=== PATIENT | male | born 1950 | race Two or more races ===

== ENCOUNTER 2017-01-27 12:32 | Inpatient (IN) | payer OTHER ==
[2017-01-27 14:28] VITALS: BMI 20.9
--- NOTE | 2017-01-27 14:59 | HP ---
CIWA Score - CIWA Score Nausea/Vomitin Muscle Tremors: 4-Moderate,w/Arms Extend Anxiety: 3 Agitation: 3 Paroxysmal Sweats: 2 Orientation: 0-Oriented Tacttile Disturbances: 1-Very Mild Itch/Numbness Auditory Disturbances: 0-None Visual Disturbances: 0-None Headache: 2-Mild CIWA-Ar Total Score: 17 Admission ROS BHS - HPI Chief Complaint: Withdrawal sx Allergies/Adverse Reactions: Allergies Allergy/AdvReac Type Severity Reaction Status Date / Time kiwi Allergy Intermediate Rash Verified 02/19/16 12:40 No Known Drug Allergies Allergy Verified 02/19/16 12:40 History of Present Illness: 66 years old man with a long hx of alcoholism is admitted for detox. Patient has been in previous detox, reports 1 year sobriety. Exam Limitations: No Limitations - Ebola screening Have you traveled outside of the country in the last 21 days: No Have you had contact with anyone from an Ebola affected area: No Have you been sick,other than usual withdrawal symptoms: No Do you have a fever: No - Review of Systems Constitutional: Diaphoresis EENT: reports: No Symptoms Reported Respiratory: reports: Cough (dry) Cardiac: reports: No Symptoms Reported GI: reports: Nausea, Abdominal cramping : reports: Frequency Musculoskeletal: reports: Joint Pain Integumentary: reports: Sweating Neuro: reports: Headache, Tingling, Tremors, Other (frequent blackouts) Endocrine: reports: No Symptoms Reported Hematology: reports: No Symptoms Reported Psychiatric: reports: No Sypmtoms Reported Other Systems: Reviewed and Negative Patient History - Patient Medical History Hx Anemia: No Hx Asthma: No Hx Chronic Obstructive Pulmonary Disease (COPD): No Hx Cancer: No Hx Cardiac Disorders: No Hx Congestive Heart Failure: No Hx Hypertension: Yes (non compliant with meds.) Hx Hypercholesterolemia: No Hx Pacemaker: No HX Cerebrovascular Accident: No Hx Seizures: No Hx Dementia: No Hx Diabetes: No Hx Gastrointestinal Disorders: Yes (DYSPEPSIA ) Hx Liver Disease: No Hx Genitourinary Disorders: No Hx Sexually Transmitted Disorders: Yes (GC) Hx Renal Disease (ESRD): No Hx Thyroid Disease: No Hx Human Immunodeficiency Virus (HIV): No Hx Hepatitis C: No Hx Depression: Yes Hx Suicide Attempt: No Hx Bipolar Disorder: Yes Hx Schizophrenia: No - Patient Surgical History Past Surgical History: Yes Hx Neurologic Surgery: No Hx Cataract Extraction: No Hx Cardiac Surgery: No Hx Lung Surgery: No Hx Breast Surgery: No Hx Breast Biopsy: No Hx Abdominal Surgery: No Hx Appendectomy: Yes Hx Cholecystectomy: No Hx Genitourinary Surgery: No Hx Section: No Hx Orthopedic Surgery: Yes (right forearm in 1981 (fall)) Anesthesia Reaction: No - PPD History Previous Implant?: Yes Documented Results: Negative w/proof Implanted On Prior [facility] Admission?: Yes Date: 02/21/16 Results: 0 MM PPD to be Administered?: Yes - Smoking Cessation Smoking history: Current every day smoker Have you smoked in the past 12 months: Yes Aproximately how many cigarettes per day: 20 Hx Chewing Tobacco Use: No Initiated information on smoking cessation: Yes 'Breaking Loose' booklet given: 01/27/17 - Substance & Tx. History Hx Alcohol Use: Yes Hx Substance Use: No Substance Use Type: Alcohol Hx Substance Use Treatment: Yes ([facility] DETOX 01/2016) - Substances Abused Alcohol Route: Oral Frequency: Daily Amount used: VODKA 3 PINTS, BEER > 1(6 PACK) Age of first use: 11 Date of Last Use: 01/26/17 Family Disease History - Family Disease History Family Disease History: CA: Father (THORAT CA, ALCOHOL), Mother (LEUKEMIA), Brother (LEUKEMIA), Other: Father Admission Physical Exam BHS - Vital Signs Vital Signs: Vital Signs - 24 hr 01/27/17 14:26 Temperature 97.4 F L Pulse Rate 99 H Respiratory 20 Rate Blood Pressure 161/95 - Physical General Appearance: Yes: Tremorous, Sweating, Anxious HEENTM: Yes: Within Normal Limits Respiratory: Yes: Chest Non-Tender, Lungs Clear, Normal Breath Sounds, No Respiratory Distress Neck: Yes: Supple Breast: Yes: Breast Exam Deferred Cardiology: Yes: Regular Rhythm, Regular Rate, S1, S2 Abdominal: Yes: Normal Bowel Sounds, Non Tender, Soft Genitourinary: Yes: Within Normal Limits Back: Yes: Within Normal Limits Musculoskeletal: Yes: Within Normal Limits Extremities: Yes: Tremors, Other (ARTHRITIC CHANGES TO BOTH HANDS) Neurological: Yes: Fully Oriented, Alert Integumentary: Yes: Diaphoresis Lymphatic: Yes: Within Normal Limits - Diagnostic (1) Alcohol dependence with uncomplicated withdrawal Current Visit: Yes Status: Chronic (2) HTN (hypertension) Current Visit: Yes Status: Chronic Qualifiers: Hypertension type: essential hypertension Qualified Code(s): I10 - Essential (primary) hypertension (3) Nicotine dependence Current Visit: Yes Status: Chronic Qualifiers: Nicotine product type: cigarettes Substance use status: uncomplicated Qualified Code(s): F17.210 - Nicotine dependence, cigarettes, uncomplicated Cleared for Admission BHS - Detox or Rehab [facility] Level of Care: Medically Managed Detox Regimen/Protocol: Librium BHS Breath Alcohol Content Breath Alcohol Content: 0 Urine Drug Screen - Results Drug Screen Negative: No Urine Drug Screen Results: BZO-Benzodiazepines
[2017-01-27] MEDS ORDERED: NICOTINE POLACRILEX 2 MG GUM BC PRN (15:27)
[2017-01-27] MEDS ORDERED: hydrOXYzine PAMOATE 50 MG CAPSULE (FP) PO PRN (15:27)
[2017-01-27] MEDS ORDERED: MAG HYDROX/AL HYDROX/SIMETH 30 ML UNIT-DOSE CUP PO PRN (15:27)
[2017-01-27] MEDS ORDERED: IBUPROFEN 400 MG TABLET (FP) PO PRN (15:27)
[2017-01-27] MEDS ORDERED: guaiFENesin/D-METHORPHAN HB 10 ML UNIT-DOSE CUPS PO PRN (15:27)
[2017-01-27] MEDS ORDERED: MENTHOL/PHENOL 1 EACH UD MM PRN (15:27)
[2017-01-27] MEDS ORDERED: P-EPHED 60MG/TRIPROLIDI 2.5MG TABLET PO PRN (15:27)
[2017-01-27] MEDS ORDERED: LOPERAMIDE HCL 2 MG CAPSULE PO PRN (15:27)
[2017-01-27] MEDS ORDERED: chlordiazePOXIDE HCL 25 MG CAPSULE PO PRN (15:27)
[2017-01-27] MEDS ORDERED: MAGNESIUM CITRATE 300 ML BOTTLE PO PRN (15:27)
[2017-01-27] MEDS ORDERED: diphenhydrAMINE HCL 50 MG CAPSULE PO PRN (15:27)
[2017-01-27] MEDS ORDERED: MAGNESIUM HYDROX 2400MG/30ML ORAL SUSPENSION 30 ML CUP PO PRN (15:27)
[2017-01-27] MEDS ORDERED: ACETAMINOPHEN 325 MG TABLET (FP) PO PRN (15:27)
[2017-01-27] MEDS ORDERED: chlordiazePOXIDE HCL 25 MG CAPSULE PO ONE (17:00)
[2017-01-27] MEDS: VERAPAMIL HCL 240 MG E.R. TABLET (FP) PO SCH (18:26)
[2017-01-27] MEDS: chlordiazePOXIDE HCL 25 MG CAPSULE PO SCH ×2 (18:27→22:23)
[2017-01-27] MEDS: NICOTINE 21 MG/24 HOURS TOPICAL PATCH TD SCH (18:29)
[2017-01-27] MEDS: THIAMINE HCL 100 MG TABLET (FP) PO SCH (22:22)
[2017-01-28 00:20] LABS: URINE APPEARANCE CLEAR; URINE BILIRUBIN NEGATIVE (NEGATIVE); URINE BLOOD NEGATIVE (NEGATIVE); URINE COLOR YELLOW; URINE GLUCOSE (UA) 3+ (NEGATIVE); URINE KETONE NEGATIVE (NEGATIVE); URINE LEUK ESTERASE NEGATIVE (NEGATIVE); URINE NITRITE NEGATIVE (NEGATIVE); URINE PROTEIN NEGATIVE (NEGATIVE); URINE UROBILINOGEN NEGATIVE mg/dL (0.2-1.0)
[2017-01-28] MEDS: chlordiazePOXIDE HCL 25 MG CAPSULE PO SCH ×4 (05:14→22:14)
[2017-01-28 09:42] LABS: MCH 33.9 pg (25.7-33.7); MCHC 34.5 g/dl (32.0-35.9); MEAN CELL VOLUME 98.5 fl (80-96); MEAN PLT VOLUME 8.3 fl (7.5-11.1); PLATELET COUNT 156 K/MM3 (134-434); RDW 14.3 % (11.9-15.9); WHITE BLOOD COUNT 8.7 K/mm3 (4.0-10.0)
--- NOTE | 2017-01-28 09:55 | EKG ---
Test Reason : Blood Pressure : / mmHG Vent. Rate : 095 BPM Atrial Rate : 095 BPM P-R Int : 140 ms QRS Dur : 098 ms QT Int : 386 ms P-R-T Axes : 069 074 071 degrees QTc Int : 485 ms SINUS RHYTHM WITH PREMATURE ATRIAL COMPLEXES VOLTAGE CRITERIA FOR LEFT VENTRICULAR HYPERTROPHY NONSPECIFIC ST ABNORMALITY PROLONGED QT ABNORMAL ECG NO PREVIOUS ECGS AVAILABLE Confirmed by PIA LOWE MD ([id number]) on 01/28/2017 9:55:17 AM Referred By: Moise Cooper Confirmed By:PIA LOWE MD
[2017-01-28 09:59] LABS: ALK PHOS 92 U/L (45-117); ANION GAP 8 (8-16); BILIRUBIN,TOTAL 1.1 mg/dL (0.2-1.0); CO2 30 mmol/L (21-32); CREATININE 0.9 mg/dL (0.7-1.3); GLUCOSE,RANDOM 118 mg/dL (74-106); SGOT/AST 24 U/L (15-37); SGPT/ALT 20 U/L (12-78); TOT PROT 6.7 g/dl (6.4-8.2)
[2017-01-28] MEDS: PRENATAL VITAMINS W/ FOLIC ACID TABLET (FP) PO SCH (10:27)
[2017-01-28] MEDS: NICOTINE 21 MG/24 HOURS TOPICAL PATCH TD SCH (10:27)
[2017-01-28] MEDS: VERAPAMIL HCL 240 MG E.R. TABLET (FP) PO SCH (10:27)
--- NOTE | 2017-01-28 11:46 | PN ---
[facility] CIWA - CIWA Score Nausea/Vomitin-No Nausea/No Vomiting Muscle Tremors: 4-Moderate,w/Arms Extend Anxiety: 4-Mod. Anxious/Guarded Agitation: 4-Moderately Restless Paroxysmal Sweats: 1-Minimal Palms Moist Orientation: 0-Oriented Tacttile Disturbances: 3-Moderate Itch/Numb/Burn Auditory Disturbances: 0-None Visual Disturbances: 0-None Headache: 0-None Present CIWA-Ar Total Score: 16 S Progress Note (SOAP) Subjective: ANXIETY,TREMORS,SWEATS,INTERMITTENT SLEEP. Objective: 01/28/17 11:46 Vital Signs Temperature 97.1 F L 01/28/17 09:49 Pulse Rate 86 01/28/17 09:49 Respiratory Rate 18 01/28/17 09:49 Blood Pressure 122/66 01/28/17 09:49 O2 Sat by Pulse Oximetry (%) Laboratory Last Values WBC 8.7 K/mm3 (4.0-10.0) D 01/28/17 07:00 RBC 3.34 M/mm3 (4.00-5.60) L 01/28/17 07:00 Hgb 11.3 GM/dL (11.7-16.9) L 01/28/17 07:00 Hct 32.9 % (35.4-49) L 01/28/17 07:00 MCV 98.5 fl (80-96) H 01/28/17 07:00 MCH 33.9 pg (25.7-33.7) H 01/28/17 07:00 MCHC 34.5 g/dl (32.0-35.9) 01/28/17 07:00 RDW 14.3 % (11.9-15.9) 01/28/17 07:00 Plt Count 156 K/MM3 (134-434) D 01/28/17 07:00 MPV 8.3 fl (7.5-11.1) 01/28/17 07:00 Sodium 135 mmol/L (136-145) L 01/28/17 07:00 Potassium 3.4 mmol/L (3.5-5.1) L 01/28/17 07:00 Chloride 97 mmol/L (98-107) L 01/28/17 07:00 Carbon Dioxide 30 mmol/L (21-32) 01/28/17 07:00 Anion Gap 8 (8-16) 01/28/17 07:00 BUN 11 mg/dL (7-18) 01/28/17 07:00 Creatinine 0.9 mg/dL (0.7-1.3) 01/28/17 07:00 Creat Clearance w eGFR > 60 (>60) 01/28/17 07:00 Random Glucose 118 mg/dL (74-106) H 01/28/17 07:00 Calcium 9.0 mg/dL (8.5-10.1) 01/28/17 07:00 Total Bilirubin 1.1 mg/dL (0.2-1.0) H D 01/28/17 07:00 AST 24 U/L (15-37) 01/28/17 07:00 ALT 20 U/L (12-78) 01/28/17 07:00 Alkaline Phosphatase 92 U/L (45-117) 01/28/17 07:00 Total Protein 6.7 g/dl (6.4-8.2) D 01/28/17 07:00 Albumin 3.0 g/dl (3.4-5.0) L D 01/28/17 07:00 Urine Color Yellow 01/27/17 22:24 Urine Appearance Clear 01/27/17 22:24 Urine pH 5.0 (5.0-8.0) 01/27/17 22:24 Ur Specific [place] 1.015 (1.005-1.025) 01/27/17 22:24 Urine Protein Negative (NEGATIVE) 01/27/17 22:24 Urine Glucose (UA) 3+ (NEGATIVE) H 01/27/17 22:24 Urine Ketones Negative (NEGATIVE) 01/27/17 22:24 Urine Blood Negative (NEGATIVE) 01/27/17 22:24 Urine Nitrite Negative (NEGATIVE) 01/27/17 22:24 Urine Bilirubin Negative (NEGATIVE) 01/27/17 22:24 Urine Urobilinogen Negative mg/dL (0.2-1.0) 01/27/17 22:24 RPR Titer Nonreactive (NONREACTIVE) 01/28/17 07:00 LABS NOTED. Assessment: 01/28/17 11:46 WITHDRAWAL SX R/O HYPERGLYCEMIA Plan: CONTINUE DETOX FBS X 2 DAYS
[2017-01-28] MEDS ORDERED: POTASSIUM CHLORIDE TABS 20 MEQ TABLET.ER (FP) PO ONE (12:30)
--- NOTE | 2017-01-28 12:47 | CONSULT ---
[facility] Psychiatric Consult - Data Date of interview: 01/28/17 Admission source: [facility] Identifying data: Readmission to [facility] for this 66 y/o male seeking detox treatment on for alcohol dependence.Patient is single ( common-law),a father of one,domiciled,unemployed and supported on his [employer] Veterans benefits. Substance Abuse History: Confirmed by patient. Smoking Cessation. Smoking history: Current every day smoker. Have you smoked in the past 12 months: Yes. Aproximately how many cigarettes per day: 20. Hx Chewing Tobacco Use: No. Initiated information on smoking cessation: Yes. 'Breaking Loose' booklet given : 01/27/17. - Substance & Tx. History. Hx Alcohol Use: Yes. Hx Substance Use : No. Substance Use Type: Alcohol. Hx Substance Use Treatment: Yes ([facility] 01/2016). - Substances Abused. Alcohol. Route: Oral. Frequency: Daily. Amount used: VODKA 3 PINTS, BEER > 1(6 PACK). Age of first use: 11. Date of Last Use: 01/26/17 Medical History: Remarkable for hypertension,dyspepsia and a history of treatment for gonorrhea + appendectomy + orthosurgery for fracture of right forearm (1981). Psychiatric History: No reported history of psychiatric hospitalizations.Patient has been diagnosed with Bipolar Disorder and he is currently followed at the [facility] OPD clinic in the [place].Managed with seroquel 200 mg/hs.Mr Martinez indicates that he is adherent to his medications.No history of suicide attempts. Physical/Sexual Abuse/Trauma History: Patient denies history of abuse. Additional Comment: Urine Drug Screen Results: BZO-Benzodiazepines.Noted. Mental Status Exam - Mental Status Exam Alert and Oriented to: Time, Place, Person Cognitive Function: Good Patient Appearance: Well Groomed (small stature) Mood: Hopeful, Euthymic Affect: Appropriate, Normal Range Patient Behavior: Appropriate, Cooperative (friendly) Speech Pattern: Clear, Appropriate (french fluent) Voice Loudness: Normal Thought Process: Intact, Goal Oriented Thought Disorder: Not Present Hallucinations: Denies Suicidal Ideation: Denies Homicidal Ideation: Denies Insight/Judgement: Poor Sleep: Well, Poorly (medication : seroquel) Appetite: Good Muscle strength/Tone: Normal Gait/Station: Normal Psychiatric Findings - Problem List ([place] 1, 2,3) (1) Bipolar disorder Current Visit: Yes Status: Chronic Comment[facility]. (2) Alcohol dependence with uncomplicated withdrawal Current Visit: Yes Status: Acute (3) Nicotine dependence Current Visit: Yes Status: Acute Qualifiers: Nicotine product type: cigarettes Substance use status: uncomplicated Qualified Code(s): F17.210 - Nicotine dependence, cigarettes, uncomplicated (4) Drug-induced mood disorder Current Visit: Yes Status: Acute (5) HTN (hypertension) Current Visit: Yes Status: Chronic Qualifiers: Hypertension type: essential hypertension Qualified Code(s): I10 - Essential (primary) hypertension - Initial Treatment Plan Initial Treatment Plan: Psychoeducation.Detoxification.Seroquel 100 mg po hs ( purposedly reduced).Observe response in next 24-48 hours and if no oversedation, will raise back to 200 mg/hs.Side effects/benefits discussed with patient.He is in agreement with this careplan.Observation.
[2017-01-28] MEDS: QUEtiapine FUMARATE 100 MG TABLET (FP) PO SCH (22:14)
[2017-01-28] MEDS: THIAMINE HCL 100 MG TABLET (FP) PO SCH (22:14)
[2017-01-29] MEDS: chlordiazePOXIDE HCL 25 MG CAPSULE PO SCH ×2 (06:06→10:16)
[2017-01-29] MEDS: VERAPAMIL HCL 240 MG E.R. TABLET (FP) PO SCH (10:16)
[2017-01-29] MEDS: POTASSIUM CHLORIDE TABS 20 MEQ TABLET.ER (FP) PO SCH (10:16)
[2017-01-29] MEDS: NICOTINE 21 MG/24 HOURS TOPICAL PATCH TD SCH (10:16)
[2017-01-29] MEDS: PRENATAL VITAMINS W/ FOLIC ACID TABLET (FP) PO SCH (10:16)
--- NOTE | 2017-01-29 15:45 | PN ---
S CIWA - CIWA Score Nausea/Vomitin Muscle Tremors: 3 Anxiety: 4-Mod. Anxious/Guarded Agitation: 2 Paroxysmal Sweats: No Perspiration Orientation: 2-Disoriented Date<2 days Tacttile Disturbances: 2-Mild Itch/Numbness/Burn Auditory Disturbances: 0-None Visual Disturbances: 0-None Headache: 3-Moderate CIWA-Ar Total Score: 18 BHS Progress Note (SOAP) Subjective: Tremors, H/A, Stomach Cramping, Diarrhea. Objective: PT. A & O X 2 (DISORIENTED ABOUT DAY / DATE). PT. OBSERVED AMBULATING ON UNIT. NO ACUTE DISTRESS. 01/29/17 15:42 Vital Signs Temperature 98.6 F 01/29/17 11:09 Pulse Rate 80 01/29/17 11:09 Respiratory Rate 20 01/29/17 11:09 Blood Pressure 122/57 01/29/17 11:09 O2 Sat by Pulse Oximetry (%) Laboratory Tests 01/27/17 01/28/17 01/28/17 22:24 07:00 07:00 WBC 8.7 D RBC 3.34 L Hgb 11.3 L Hct 32.9 L MCV 98.5 H MCH 33.9 H MCHC 34.5 RDW 14.3 Plt Count 156 D MPV 8.3 Sodium 135 L Potassium 3.4 L Chloride 97 L Carbon Dioxide 30 Anion Gap 8 BUN 11 Creatinine 0.9 Creat Clearance w eGFR > 60 POC Glucometer Random Glucose 118 H Calcium 9.0 Total Bilirubin 1.1 H D AST 24 ALT 20 Alkaline Phosphatase 92 Total Protein 6.7 D Albumin 3.0 L D Urine Color Yellow Urine Appearance Clear Urine pH 5.0 Ur Specific [place] 1.015 Urine Protein Negative Urine Glucose (UA) 3+ H Urine Ketones Negative Urine Blood Negative Urine Nitrite Negative Urine Bilirubin Negative Urine Urobilinogen Negative RPR Titer 01/28/17 01/29/17 07:00 06:08 WBC RBC Hgb Hct MCV MCH MCHC RDW Plt Count MPV Sodium Potassium Chloride Carbon Dioxide Anion Gap BUN Creatinine Creat Clearance w eGFR POC Glucometer 94 Random Glucose Calcium Total Bilirubin AST ALT Alkaline Phosphatase Total Protein Albumin Urine Color Urine Appearance Urine pH Ur Specific [place] Urine Protein Urine Glucose (UA) Urine Ketones Urine Blood Urine Nitrite Urine Bilirubin Urine Urobilinogen RPR Titer Nonreactive LABS NOTED. Assessment: 01/29/17 15:43 WITHDRAWAL SYMPTOMS. HYPOKALEMIA. Plan: CONTINUE DETOX. FEOSOL, 325 MG PO BIDWM. REPEAT UA FOR ELEVATED ADMISSION UA URINE GLUCOSE LEVEL. INCREASE DAILY PO FLUID INTAKE.
[2017-01-29] MEDS: FERROUS SO4 325 MG TABLET (FP) PO SCH (17:32)
[2017-01-29] MEDS: chlordiazePOXIDE 5 MG CAPSULE PO SCH ×2 (17:33→22:36)
[2017-01-29] MEDS: THIAMINE HCL 100 MG TABLET (FP) PO SCH (22:35)
[2017-01-29] MEDS: QUEtiapine FUMARATE 100 MG TABLET (FP) PO SCH (22:35)
[2017-01-30] MEDS: chlordiazePOXIDE 5 MG CAPSULE PO SCH ×2 (05:49→10:47)
[2017-01-30] MEDS: FERROUS SO4 325 MG TABLET (FP) PO SCH ×2 (08:22→17:14)
[2017-01-30] MEDS: PRENATAL VITAMINS W/ FOLIC ACID TABLET (FP) PO SCH (10:46)
[2017-01-30] MEDS: VERAPAMIL HCL 240 MG E.R. TABLET (FP) PO SCH (10:46)
[2017-01-30] MEDS: NICOTINE 21 MG/24 HOURS TOPICAL PATCH TD SCH (10:47)
[2017-01-30] MEDS: POTASSIUM CHLORIDE TABS 20 MEQ TABLET.ER (FP) PO SCH (10:47)
[2017-01-30 13:23] LABS: URINE APPEARANCE CLEAR; URINE BILIRUBIN NEGATIVE (NEGATIVE); URINE BLOOD NEGATIVE (NEGATIVE); URINE COLOR LTYELLOW; URINE GLUCOSE (UA) NEGATIVE (NEGATIVE); URINE KETONE NEGATIVE (NEGATIVE); URINE LEUK ESTERASE NEGATIVE (NEGATIVE); URINE NITRITE NEGATIVE (NEGATIVE); URINE PROTEIN NEGATIVE (NEGATIVE); URINE UROBILINOGEN NEGATIVE mg/dL (0.2-1.0)
--- NOTE | 2017-01-30 15:54 | PN ---
BHS Progress Note (SOAP) Subjective: Tremor, chills, sweating, anxious, nausea Objective: 01/30/17 15:50 Last Vital Signs Temp Pulse Resp BP Pulse Ox 98.2 F 88 18 123/69 01/30/17 14:49 01/30/17 14:49 01/30/17 14:49 01/30/17 14:49 Laboratory Tests 01/27/17 01/28/17 01/28/17 22:24 07:00 07:00 WBC 8.7 D RBC 3.34 L Hgb 11.3 L Hct 32.9 L MCV 98.5 H MCH 33.9 H MCHC 34.5 RDW 14.3 Plt Count 156 D MPV 8.3 Sodium 135 L Potassium 3.4 L Chloride 97 L Carbon Dioxide 30 Anion Gap 8 BUN 11 Creatinine 0.9 Creat Clearance w eGFR > 60 POC Glucometer Random Glucose 118 H Calcium 9.0 Total Bilirubin 1.1 H D AST 24 ALT 20 Alkaline Phosphatase 92 Total Protein 6.7 D Albumin 3.0 L D Urine Color Yellow Urine Appearance Clear Urine pH 5.0 Ur Specific [place] 1.015 Urine Protein Negative Urine Glucose (UA) 3+ H Urine Ketones Negative Urine Blood Negative Urine Nitrite Negative Urine Bilirubin Negative Urine Urobilinogen Negative RPR Titer 01/28/17 01/29/17 01/30/17 07:00 06:08 05:52 WBC RBC Hgb Hct MCV MCH MCHC RDW Plt Count MPV Sodium Potassium Chloride Carbon Dioxide Anion Gap BUN Creatinine Creat Clearance w eGFR POC Glucometer 94 111 Random Glucose Calcium Total Bilirubin AST ALT Alkaline Phosphatase Total Protein Albumin Urine Color Urine Appearance Urine pH Ur Specific [place] Urine Protein Urine Glucose (UA) Urine Ketones Urine Blood Urine Nitrite Urine Bilirubin Urine Urobilinogen RPR Titer Nonreactive 01/30/17 08:33 WBC RBC Hgb Hct MCV MCH MCHC RDW Plt Count MPV Sodium Potassium Chloride Carbon Dioxide Anion Gap BUN Creatinine Creat Clearance w eGFR POC Glucometer Random Glucose Calcium Total Bilirubin AST ALT Alkaline Phosphatase Total Protein Albumin Urine Color Ltyellow Urine Appearance Clear Urine pH 7.0 D Ur Specific [place] Urine Protein Negative Urine Glucose (UA) Negative Urine Ketones Negative Urine Blood Negative Urine Nitrite Negative Urine Bilirubin Negative Urine Urobilinogen Negative RPR Titer Labs noted: K 3.4 Assessment: 01/30/17 15:52 Withdrawal symptoms Noted with mild hypokalemia Plan: Continue detox Hypokalemia: supplemented
[2017-01-30] MEDS: chlordiazePOXIDE HCL 10 MG CAPSULE PO SCH ×2 (17:14→23:13)
[2017-01-30] MEDS: QUEtiapine FUMARATE 100 MG TABLET (FP) PO SCH (23:13)
[2017-01-30] MEDS: THIAMINE HCL 100 MG TABLET (FP) PO SCH (23:13)
[2017-01-31] MEDS: chlordiazePOXIDE HCL 10 MG CAPSULE PO SCH (06:02)
[2017-01-31] MEDS: FERROUS SO4 325 MG TABLET (FP) PO SCH (07:35)
[2017-01-31 09:02] VITALS: BP 119/67; PULSE 86; TEMP 96.7
--- NOTE | 2017-01-31 09:02 | DS ---
[facility] Detox Discharge Summary Admission Date: 01/27/17 Discharge Date: 01/31/17 - History Present History: Alcohol Dependence Pertinent Past History: nicoitne dependence, anxiety, depresssion, insomnia, fatigue - Physical Exam Results Vital Signs: Vital Signs Temperature 96.5 F L 01/31/17 06:21 Pulse Rate 82 01/31/17 06:21 Respiratory Rate 18 01/31/17 06:21 Blood Pressure 111/65 01/31/17 06:21 O2 Sat by Pulse Oximetry (%) Laboratory Tests 01/27/17 01/28/17 01/28/17 22:24 07:00 07:00 WBC 8.7 D RBC 3.34 L Hgb 11.3 L Hct 32.9 L MCV 98.5 H MCH 33.9 H MCHC 34.5 RDW 14.3 Plt Count 156 D MPV 8.3 Sodium 135 L Potassium 3.4 L Chloride 97 L Carbon Dioxide 30 Anion Gap 8 BUN 11 Creatinine 0.9 Creat Clearance w eGFR > 60 POC Glucometer Random Glucose 118 H Calcium 9.0 Total Bilirubin 1.1 H D AST 24 ALT 20 Alkaline Phosphatase 92 Total Protein 6.7 D Albumin 3.0 L D Urine Color Yellow Urine Appearance Clear Urine pH 5.0 Ur Specific [place] 1.015 Urine Protein Negative Urine Glucose (UA) 3+ H Urine Ketones Negative Urine Blood Negative Urine Nitrite Negative Urine Bilirubin Negative Urine Urobilinogen Negative RPR Titer 01/28/17 01/29/17 01/30/17 07:00 06:08 05:52 WBC RBC Hgb Hct MCV MCH MCHC RDW Plt Count MPV Sodium Potassium Chloride Carbon Dioxide Anion Gap BUN Creatinine Creat Clearance w eGFR POC Glucometer 94 111 Random Glucose Calcium Total Bilirubin AST ALT Alkaline Phosphatase Total Protein Albumin Urine Color Urine Appearance Urine pH Ur Specific [place] Urine Protein Urine Glucose (UA) Urine Ketones Urine Blood Urine Nitrite Urine Bilirubin Urine Urobilinogen RPR Titer Nonreactive 01/30/17 01/31/17 08:33 06:01 WBC RBC Hgb Hct MCV MCH MCHC RDW Plt Count MPV Sodium Potassium Chloride Carbon Dioxide Anion Gap BUN Creatinine Creat Clearance w eGFR POC Glucometer 97 Random Glucose Calcium Total Bilirubin AST ALT Alkaline Phosphatase Total Protein Albumin Urine Color Ltyellow Urine Appearance Clear Urine pH 7.0 D Ur Specific [place] 1.015 Urine Protein Negative Urine Glucose (UA) Negative Urine Ketones Negative Urine Blood Negative Urine Nitrite Negative Urine Bilirubin Negative Urine Urobilinogen Negative RPR Titer hypokalemia, k supplemented, mild anemia Pertinent Admission Physical Exam Findings: withdrawal sx - Treatment Hospital Course: Detox Protocol Followed, Detoxed Safely, Responded well, Discharged Condition Good, Rehab Referral Accepted - Medication Discharge Medications: Ambulatory Orders Quetiapine Fumarate [Seroquel -] 300 mg PO HS #30 tablet 04/18/14 Quetiapine Fumarate [Seroquel -] 300 mg PO HS #30 tab 02/19/16 Quetiapine Fumarate [Seroquel -] 200 mg PO HS #30 tab 01/28/17 Verapamil HCl ER [Calan Sr -] 240 mg PO DAILY #30 tablet.er 01/31/17 - Diagnosis (1) Alcohol dependence with uncomplicated withdrawal Current Visit: Yes Status: Chronic (2) Drug-induced mood disorder Current Visit: Yes Status: Acute (3) Hypokalemia Current Visit: Yes Status: Acute (4) Nicotine dependence Current Visit: Yes Status: Chronic Qualifiers: Nicotine product type: cigarettes Substance use status: uncomplicated Qualified Code(s): F17.210 - Nicotine dependence, cigarettes, uncomplicated; F17.210 - Nicotine dependence, cigarettes, uncomplicated (5) Bipolar disorder Current Visit: Yes Status: Chronic (6) HTN (hypertension) Current Visit: Yes Status: Chronic Qualifiers: Hypertension type: essential hypertension Qualified Code(s): I10 - Essential (primary) hypertension; I10 - Essential (primary) hypertension; I10 - Essential (primary) hypertension (7) Alcohol dependence, episodic drinking behavior Current Visit: Yes Status: Acute - AMA Did Patient Leave Against Medical Advice: No
== END 2017-01-31 10:10 | disposition home or self-care (01) | DRG 775 ==
LOC: YASAS 12:32 → Y3N 16:42
PROVIDERS: ADMIT Internal Medicine; ATTEND Internal Medicine
PROC: HZ2ZZZZ Detoxification Services for Substance Abuse Treatment (ICD-10-PCS; principal; 2017-01-27)
DX: F10.230 Alcohol dependence with withdrawal, uncomplicated (principal); F17.210 Nicotine dependence, cigarettes, uncomplicated; F19.24 Other psychoactive substance dependence with psychoactive substance-induced mood disorder; F31.9 Bipolar disorder, unspecified; I10 Essential (primary) hypertension; E87.6 Hypokalemia; Z87.438 Personal history of other diseases of male genital organs; Z91.018 Allergy to other foods; Z91.14 Patient's other noncompliance with medication regimen
CPT/HCPCS: 36415; 80053; 81003; 85027; 86593; 93005; 93010

== ENCOUNTER 2018-04-24 09:13 | Inpatient (IN) | payer OTHER ==
[2018-04-24 09:40] VITALS: BMI 23.6
--- NOTE | 2018-04-24 10:28 | HP ---
CIWA Score Nausea/Vomitin Muscle Tremors: 2 Anxiety: 2 Agitation: 2 Paroxysmal Sweats: 1-Minimal Palms Moist Orientation: 0-Oriented Tacttile Disturbances: 1-Very Mild Itch/Numbness Auditory Disturbances: 1-Very Mild Visual Disturbances: 0-None Headache: 2-Mild CIWA-Ar Total Score: 13 - Admission Criteria OASAS Guidelines: Admission for Medically Managed Detox: Requires at least one of the followin. CIWA greater than 12 2. Seizures within the past 24 hours 3. Delirium tremens within the past 24 hours 4. Hallucinations within the past 24 hours 5. Acute intervention needed for co occurring medical disorder 6. Acute intervention needed for co occurring psychiatric disorder 7. Severe withdrawal that cannot be handled at a lower level of care (continued vomiting, continued diarrhea, abnormal vital signs) requiring intravenous medication and/or fluids 8. Patient presents the following: CIWA greater than 12 Admission Criteria Met: Admission criteria met Admission ROS [facility] - HPI Chief Complaint: i need help to stop drinking alcohol Allergies/Adverse Reactions: Allergies Allergy/AdvReac Type Severity Reaction Status Date / Time kiwi Allergy Severe Rash Verified 04/24/18 10:04 No Known Drug Allergies Allergy Verified 04/24/18 10:04 History of Present Illness: this 67 years old male with alcohol dependence,seeking detox,withdrawal symptom, last detox [facility] 01/27/17 to 02/19/17 syncope alcohol related history of hypertension non compliance no med fx of right forearm after the fall bipolar disorder no med longest period of sobriety 1 year weight loss may consider rehab after detox nicotine dependence - Ebola screening Have you traveled outside of the country in the last 21 days: No (N) Have you had contact with anyone from an Ebola affected area: No Have you been sick,other than usual withdrawal symptoms: No Do you have a fever: No - Review of Systems Constitutional: Loss of Appetite, Malaise, Night Sweats, Changes in sleep, Weakness, Unintentional Wgt. Loss EENT: reports: Nose Congestion Respiratory: reports: No Symptoms reported Cardiac: reports: No Symptoms Reported GI: reports: Diarrhea, Nausea, Vomiting, Abdominal cramping : reports: No Symptoms Reported Musculoskeletal: reports: Back Pain, Muscle Pain Integumentary: reports: Dryness Neuro: reports: Headache, Tremors Endocrine: reports: No Symptoms Reported Hematology: reports: No Symptoms Reported Psychiatric: reports: No Sypmtoms Reported, Judgement Intact, Mood/Affect Appropiate, Orientated x3, Agitated (bipolar disorder) Patient History - Patient Medical History Hx Anemia: No Hx Asthma: No Hx Chronic Obstructive Pulmonary Disease (COPD): No Hx Cancer: No Hx Cardiac Disorders: No Hx Congestive Heart Failure: No Hx Hypertension: Yes (non compliance no med) Hx Hypercholesterolemia: No Hx Pacemaker: No HX Cerebrovascular Accident: No Hx Seizures: No Hx Dementia: No Hx Diabetes: No Hx Gastrointestinal Disorders: No Hx Liver Disease: No Hx Genitourinary Disorders: No Hx Sexually Transmitted Disorders: No Hx Renal Disease (ESRD): No Hx Thyroid Disease: No Hx Human Immunodeficiency Virus (HIV): No (last 2016 negative) Hx Hepatitis C: No Hx Depression: Yes Hx Suicide Attempt: No Hx Bipolar Disorder: Yes (no meds) Hx Schizophrenia: No Other Medical History: o suicidal,no homicidal - Patient Surgical History Past Surgical History: Yes Hx Neurologic Surgery: No Hx Cataract Extraction: No Hx Cardiac Surgery: No Hx Lung Surgery: No Hx Breast Surgery: No Hx Breast Biopsy: No Hx Abdominal Surgery: No Hx Appendectomy: Yes (at age of [age] years old) Hx Cholecystectomy: No Hx Genitourinary Surgery: No Hx Section: No Hx Orthopedic Surgery: Yes (right forearm in 1981) Anesthesia Reaction: No - PPD History Previous Implant?: Yes Documented Results: Negative w/o proof Implanted On Prior [facility] Admission?: Yes Date: 01/29/17 Results: 0 mm PPD to be Administered?: Yes - Smoking Cessation Smoking history: Current every day smoker Have you smoked in the past 12 months: Yes Aproximately how many cigarettes per day: 20 Hx Chewing Tobacco Use: No Initiated information on smoking cessation: Yes 'Breaking Loose' booklet given: 04/24/18 - Substance & Tx. History Hx Alcohol Use: Yes Hx Substance Use: No Substance Use Type: Alcohol Hx Substance Use Treatment: Yes ([facility] 01/27/17 to 01/31/17) - Substances Abused Alcohol Route: Oral Frequency: Daily Amount used: 2.5 pints of vodka Age of first use: 6 Date of Last Use: 04/24/18 Family Disease History - Family Disease History Family Disease History: CA: Father (THORAT CA, ALCOHOL,), Mother ( LEUKEMIA), Brother (LEUKEMIA), Other: Father Admission Physical Exam [facility] - Vital Signs Vital Signs: Vital Signs - 24 hr 04/24/18 09:37 Temperature 98.5 F Pulse Rate 81 Respiratory 20 Rate Blood Pressure 146/81 - Physical General Appearance: Yes: Moderate Distress, Tremorous, Irritable, Sweating, Anxious HEENTM: Yes: Normal ENT Inspection, MENA, Pharynx Normal Respiratory: Yes: Lungs Clear, Normal Breath Sounds, No Respiratory Distress Neck: Yes: Within Normal Limits, Supple, Trachea in good position Breast: Yes: Within Normal Limits Cardiology: Yes: Within Normal Limits, Regular Rhythm, Regular Rate, S1, S2 Abdominal: Yes: Within Normal Limits, Normal Bowel Sounds, Non Tender, Soft, Surgical Scar Genitourinary: Yes: Within Normal Limits Back: Yes: Muscle Spasm Musculoskeletal: Yes: Back pain, Muscle Pain Extremities: Yes: Tremors, Other (scar in right forearm) Neurological: Yes: clinical lab scientist II-XII NML intact, Fully Oriented, Alert, Motor Strength 5/5 Integumentary: Yes: Dry Lymphatic: Yes: Within Normal Limits - Diagnostic (1) Alcohol dependence with uncomplicated withdrawal Current Visit: No Status: Chronic (2) Bipolar disorder Current Visit: No Status: Chronic Comment: Followed at [facility].On seroquel. (3) HTN (hypertension) Current Visit: No Status: Chronic Qualifiers: Hypertension type: essential hypertension Qualified Code(s): I10 - Essential (primary) hypertension (4) Nicotine dependence Current Visit: No Status: Chronic Qualifiers: Nicotine product type: cigarettes Substance use status: uncomplicated Qualified Code(s): F17.210 - Nicotine dependence, cigarettes, uncomplicated (5) Weight loss Current Visit: Yes Status: Acute Cleared for Admission [facility] - Detox or Rehab [facility] Level of Care: Medically Managed Detox Regimen/Protocol: Librium [facility] Breath Alcohol Content Breath Alcohol Content: 0.077 Urine Drug Screen - Results Drug Screen Negative: No Urine Drug Screen Results: BZO-Benzodiazepines
[2018-04-24] MEDS ORDERED: chlordiazePOXIDE HCL 25 MG CAPSULE PO PRN (10:39)
[2018-04-24] MEDS ORDERED: MENTHOL/PHENOL 1 EACH UD MM PRN (10:39)
[2018-04-24] MEDS ORDERED: chlordiazePOXIDE HCL 25 MG CAPSULE PO ONE (10:39)
[2018-04-24] MEDS ORDERED: LOPERAMIDE HCL 2 MG CAPSULE PO PRN (10:39)
[2018-04-24] MEDS ORDERED: MAGNESIUM HYDROX 2400MG/30ML ORAL SUSPENSION 30 ML CUP PO PRN (10:39)
[2018-04-24] MEDS ORDERED: guaiFENesin/D-METHORPHAN HB 10 ML UNIT-DOSE CUPS PO PRN (10:39)
[2018-04-24] MEDS ORDERED: MAGNESIUM CITRATE 300 ML BOTTLE PO PRN (10:39)
[2018-04-24] MEDS ORDERED: ACETAMINOPHEN 325 MG TABLET (FP) PO PRN (10:39)
[2018-04-24] MEDS ORDERED: P-EPHED 60MG/TRIPROLIDI 2.5MG TABLET PO PRN (10:39)
[2018-04-24] MEDS ORDERED: MAG HYDROX/AL HYDROX/SIMETH 30 ML UNIT-DOSE CUP PO PRN (10:39)
[2018-04-24] MEDS ORDERED: IBUPROFEN 400 MG TABLET (FP) PO PRN (10:39)
[2018-04-24] MEDS: VERAPAMIL HCL 240 MG E.R. TABLET (FP) PO SCH (12:33)
[2018-04-24] MEDS: chlordiazePOXIDE HCL 25 MG CAPSULE PO SCH ×2 (17:33→22:09)
[2018-04-24] MEDS ORDERED: MELATONIN 5 MG TABLETS PO PRN (22:00)
[2018-04-24] MEDS: THIAMINE HCL 100 MG TABLET (FP) PO SCH (22:09)
[2018-04-25] MEDS: chlordiazePOXIDE HCL 25 MG CAPSULE PO SCH ×4 (05:24→22:35)
[2018-04-25] MEDS ORDERED: cloNIDine HCL 0.1 MG TABLET PO ONE (08:24)
--- NOTE | 2018-04-25 09:59 | PN ---
S CIWA - CIWA Score Nausea/Vomitin-Mild Nausea/No Vomiting Muscle Tremors: 2 Anxiety: 2 Agitation: 2 Paroxysmal Sweats: 2 Orientation: 0-Oriented Tacttile Disturbances: 0-None Auditory Disturbances: 0-None Visual Disturbances: 0-None Headache: 2-Mild CIWA-Ar Total Score: 11 S Progress Note (SOAP) Subjective: INTERRUPTED SLEEP, SWEATS, HEADACHE Objective: 04/25/18 09:56 Vital Signs Temperature 98.2 F 04/25/18 09:18 Pulse Rate 80 04/25/18 09:18 Respiratory Rate 16 04/25/18 09:18 Blood Pressure 135/89 04/25/18 09:18 O2 Sat by Pulse Oximetry (%) PENDING LABS 04/25/18 09:58 PT AOX3 IN NAD , EATTING BREAKFAST Assessment: 04/25/18 09:57 WITHDRAWAL SX'S HTN Plan: CONT. DETOX INCREASE FLUIDS CLONIDINE 0.1MG QD- GIVEN PENDING LABS
[2018-04-25] MEDS: PRENATAL VITAMINS W/ FOLIC ACID TABLET (FP) PO SCH (10:22)
[2018-04-25 10:50] LABS: ALBUMIN 3.6 g/dl (3.4-5.0); ALK PHOS 110 U/L (45-117); ANION GAP 9 MMOL/L (8-16); BILIRUBIN,TOTAL 0.2 mg/dL (0.2-1); BLOOD UREA NITROGEN 14 mg/dL (7-18); CALCIUM 8.9 mg/dL (8.5-10.1); CHLORIDE 100 mmol/L (98-107); CO2 28 mmol/L (21-32); CREATININE 0.9 mg/dL (0.55-1.3); GLUCOSE,RANDOM 94 mg/dL (74-106); POTASSIUM 3.7 mmol/L (3.5-5.1); SGOT/AST 26 U/L (15-37); SGPT/ALT 36 U/L (13-61); SODIUM 137 mmol/L (136-145); TOT PROT 7.8 g/dl (6.4-8.2)
[2018-04-25 11:09] LABS: HEMATOCRIT 36.1 % (35.4-49); HEMOGLOBIN 11.7 GM/dL (11.7-16.9); MCH 29.8 pg (25.7-33.7); MCHC 32.4 g/dl (32.0-35.9); MEAN PLT VOLUME 8.6 fl (7.5-11.1); PLATELET COUNT 290 K/MM3 (134-434); RBC 3.93 M/mm3 (4.00-5.60); RDW 17.4 % (11.9-15.9); WHITE BLOOD COUNT 5.2 K/mm3 (4.0-10.0)
[2018-04-25] MEDS: VERAPAMIL HCL 240 MG E.R. TABLET (FP) PO SCH (12:00)
[2018-04-25] MEDS: THIAMINE HCL 100 MG TABLET (FP) PO SCH (22:34)
[2018-04-26] MEDS: chlordiazePOXIDE HCL 25 MG CAPSULE PO SCH ×2 (05:19→10:19)
[2018-04-26] MEDS: PRENATAL VITAMINS W/ FOLIC ACID TABLET (FP) PO SCH (10:19)
[2018-04-26] MEDS: VERAPAMIL HCL 240 MG E.R. TABLET (FP) PO SCH (10:20)
--- NOTE | 2018-04-26 10:40 | PN ---
[facility] CIWA - CIWA Score Nausea/Vomitin-No Nausea/No Vomiting Muscle Tremors: 3 Anxiety: 3 Agitation: 3 Paroxysmal Sweats: 3 Orientation: 0-Oriented Tacttile Disturbances: 0-None Auditory Disturbances: 0-None Visual Disturbances: 0-None Headache: 0-None Present CIWA-Ar Total Score: 12 S Progress Note (SOAP) Subjective: shakes sweats body aches interrupted sleep Objective: 04/26/18 10:39 Vital Signs Temperature 97.7 F 04/26/18 09:30 Pulse Rate 59 L 04/26/18 09:30 Respiratory Rate 18 04/26/18 09:30 Blood Pressure 139/73 04/26/18 09:30 O2 Sat by Pulse Oximetry (%) Laboratory Tests 04/25/18 04/25/18 04/25/18 05:45 05:45 05:45 WBC 5.2 RBC 3.93 L Hgb 11.7 Hct 36.1 MCV 92.0 MCH 29.8 MCHC 32.4 RDW 17.4 H Plt Count 290 D MPV 8.6 Sodium 137 Potassium 3.7 Chloride 100 Carbon Dioxide 28 Anion Gap 9 BUN 14 Creatinine 0.9 Creat Clearance w eGFR > 60 Random Glucose 94 Calcium 8.9 Total Bilirubin 0.2 AST 26 ALT 36 Alkaline Phosphatase 110 Total Protein 7.8 Albumin 3.6 RPR Titer Nonreactive aaox3 ambulating no acute distress Assessment: 04/26/18 10:40 withdrawal sx Plan: continue detox increase fluids
[2018-04-26] MEDS ORDERED: PERMETHRIN 5% TOPICAL CREAM 60 GM TUBE TP ONE (12:55)
[2018-04-26] MEDS: chlordiazePOXIDE 5 MG CAPSULE PO SCH ×2 (17:32→22:21)
--- NOTE | 2018-04-26 17:39 | PN ---
S Progress Note Note: pt was roommate with a pt that may have been exposed to lice. pt was made aware that he will need to be treated to prevent any spread of lice. pt in agreement. treatment ordered. will re-evaluate in the am.
[2018-04-26] MEDS: THIAMINE HCL 100 MG TABLET (FP) PO SCH (22:21)
[2018-04-27] MEDS: chlordiazePOXIDE 5 MG CAPSULE PO SCH ×2 (05:29→10:23)
--- NOTE | 2018-04-27 09:54 | PN ---
[facility] Progress Note (SOAP) Subjective: I need to see psych for my bipolar d/c. i am having racing thoughts anxiety feeling ok Objective: 04/27/18 09:53 Vital Signs Temperature 98.8 F 04/27/18 05:59 Pulse Rate 74 04/27/18 05:59 Respiratory Rate 18 04/27/18 05:59 Blood Pressure 135/80 04/27/18 05:59 O2 Sat by Pulse Oximetry (%) aaox3 ambulating no acute distress Assessment: 04/27/18 09:53 mild withdrawals denies any S/H ideation psych ordered Plan: continue with detox increase fluids psych ordered d/c in am
[2018-04-27] MEDS: PRENATAL VITAMINS W/ FOLIC ACID TABLET (FP) PO SCH (10:23)
[2018-04-27] MEDS: VERAPAMIL HCL 240 MG E.R. TABLET (FP) PO SCH (10:23)
--- NOTE | 2018-04-27 16:41 | CONSULT ---
[facility] Psychiatric Consult - Data Date of interview: 04/27/18 Admission source: [facility] Identifying data: Patient is a 67 year old single male, father of one, retired, and is currently homeless. This is one of multiple admissions for patient. Patient admitted to for alcohol dependence. Substance Abuse History: Smoking Cessation. Smoking history: Current every day smoker. Have you smoked in the past 12 months: Yes. Aproximately how many cigarettes per day: 20. Hx Chewing Tobacco Use: No. Initiated information on smoking cessation: Yes. 'Breaking Loose' booklet given: 04/24/18. - Substance & Tx. History. Hx Alcohol Use: Yes. Hx Substance Use: No. Substance Use Type : Alcohol. Hx Substance Use Treatment: Yes ([facility] 01/27/17 to 01/31/17). - Substances Abused. Alcohol. Route: Oral. Frequency: Daily. Amount used: 2.5 pints of vodka. Age of first use: 6. Date of Last Use: 04/24/18 Medical History: hypertension, appendectomy, right forearm surgery Psychiatric History: Patient denies h/o psychiatric hospitalization. Patient reports h/o bipolar disorder. Outpatient psychiatric care was most recently provided at [facility] one year ago. During the beginning of treatment he was started on seroquel 100mg but due to his racing thoughts his seroquel was increased to 400mg. He last accepted seroquel while in detox at this facility in 12/2016. Patient denies h/o suicide attempt. At present he reports stable mood but is experiencing difficulty sleeping. Physical/Sexual Abuse/Trauma History: denies. Mental Status Exam - Mental Status Exam Alert and Oriented to: Time, Place, Person Cognitive Function: Good Patient Appearance: Well Groomed Mood: Hopeful Affect: Appropriate Patient Behavior: Appropriate, Cooperative Speech Pattern: Clear, Appropriate Voice Loudness: Normal Thought Process: Intact, Goal Oriented Thought Disorder: Not Present Hallucinations: Denies Suicidal Ideation: Denies Homicidal Ideation: Denies Insight/Judgement: Poor Sleep: Poorly Appetite: Fair Muscle strength/Tone: Normal Gait/Station: Normal Psychiatric Findings - Problem List ([place] 1, 2,3) (1) Insomnia Current Visit: Yes Status: Acute (2) Alcohol dependence with uncomplicated withdrawal Current Visit: Yes Status: Acute (3) Nicotine dependence Current Visit: No Status: Chronic Qualifiers: Nicotine product type: cigarettes Substance use status: uncomplicated Qualified Code(s): F17.210 - Nicotine dependence, cigarettes, uncomplicated (4) Bipolar disorder Current Visit: Yes Status: Chronic Qualifiers: Most recent bipolar episode type: most recent episode unspecified type Comment: Noncompliant with treatment. - Initial Treatment Plan Initial Treatment Plan: Psychoeducation provided. Detoxification in progress. Will order Seroquel 50mg qhs. Benefits and side effects discussed. Verbal consent given.
[2018-04-27] MEDS: chlordiazePOXIDE HCL 10 MG CAPSULE PO SCH ×2 (17:50→22:21)
[2018-04-27] MEDS ORDERED: QUEtiapine FUMARATE 50 MG TABLET PO SCH (22:00)
[2018-04-27] MEDS: THIAMINE HCL 100 MG TABLET (FP) PO SCH (22:21)
[2018-04-28] MEDS: chlordiazePOXIDE HCL 10 MG CAPSULE PO SCH (05:43)
--- NOTE | 2018-04-28 08:57 | DS ---
[facility] Detox Discharge Summary Admission Date: 04/24/18 Discharge Date: 04/28/18 - History Present History: Alcohol Dependence - Physical Exam Results Vital Signs: Vital Signs Temperature 96.8 F L 04/28/18 07:34 Pulse Rate 50 L 04/28/18 07:34 Respiratory Rate 18 04/28/18 07:34 Blood Pressure 144/74 04/28/18 07:34 O2 Sat by Pulse Oximetry (%) - Treatment Hospital Course: Detox Protocol Followed, Detoxed Safely, Responded well, Discharged Condition Good, Rehab Referral Accepted - Medication Discharge Medications: Ambulatory Orders Verapamil HCl ER [Calan Sr -] 240 mg PO DAILY #30 tablet.er 01/31/17 Quetiapine Fumarate [Seroquel -] 400 mg PO HS 04/24/18 - Diagnosis (1) Alcohol dependence with uncomplicated withdrawal Current Visit: Yes Status: Chronic (2) History of appendectomy Current Visit: Yes Status: Acute (3) Insomnia Current Visit: Yes Status: Acute (4) Weight loss Current Visit: Yes Status: Acute (5) Bipolar disorder Current Visit: Yes Status: Chronic Qualifiers: Most recent bipolar episode type: most recent episode unspecified type (6) Alcohol dependence, episodic drinking behavior Current Visit: No Status: Acute (7) Drug-induced mood disorder Current Visit: No Status: Acute (8) HTN (hypertension) Current Visit: No Status: Chronic Qualifiers: Hypertension type: essential hypertension Qualified Code(s): I10 - Essential (primary) hypertension (9) Nicotine dependence Current Visit: Yes Status: Chronic Qualifiers: Nicotine product type: cigarettes Substance use status: uncomplicated Qualified Code(s): F17.210 - Nicotine dependence, cigarettes, uncomplicated - AMA Did Patient Leave Against Medical Advice: No (referred to [facility] )
[2018-04-28 09:11] VITALS: BP 136/89; PULSE 71; TEMP 98.6
[2018-04-28] MEDS: PRENATAL VITAMINS W/ FOLIC ACID TABLET (FP) PO SCH (10:50)
[2018-04-28] MEDS: VERAPAMIL HCL 240 MG E.R. TABLET (FP) PO SCH (10:50)
== END 2018-04-28 10:53 | disposition home or self-care (01) | DRG 897 ==
LOC: YASAS 09:13 → Y6N 10:27
PROC: HZ2ZZZZ Detoxification Services for Substance Abuse Treatment (ICD-10-PCS; principal; 2018-04-24)
DX: F10.230 Alcohol dependence with withdrawal, uncomplicated (principal); F17.210 Nicotine dependence, cigarettes, uncomplicated; F19.24 Other psychoactive substance dependence with psychoactive substance-induced mood disorder; F31.9 Bipolar disorder, unspecified; I10 Essential (primary) hypertension; G47.00 Insomnia, unspecified; Z20.9 Contact with and (suspected) exposure to unspecified communicable disease; Z91.14 Patient's other noncompliance with medication regimen
CPT/HCPCS: 36415; 80053; 85027; 86593; J0735

== ENCOUNTER 2018-06-11 09:30 | Inpatient (IN) | payer OTHER ==
[2018-06-11 10:19] VITALS: BMI 23.9
--- NOTE | 2018-06-11 14:20 | HP ---
CIWA Score Nausea/Vomitin-Mild Nausea/No Vomiting Muscle Tremors: 4-Moderate,w/Arms Extend Anxiety: 3 Agitation: 1-Slight > Activity Paroxysmal Sweats: 3 Orientation: 0-Oriented Tacttile Disturbances: 0-None Auditory Disturbances: 0-None Visual Disturbances: 0-None Headache: 0-None Present CIWA-Ar Total Score: 12 - Admission Criteria OASAS Guidelines: Admission for Medically Managed Detox: Requires at least one of the followin. CIWA greater than 12 2. Seizures within the past 24 hours 3. Delirium tremens within the past 24 hours 4. Hallucinations within the past 24 hours 5. Acute intervention needed for co occurring medical disorder 6. Acute intervention needed for co occurring psychiatric disorder 7. Severe withdrawal that cannot be handled at a lower level of care (continued vomiting, continued diarrhea, abnormal vital signs) requiring intravenous medication and/or fluids 8. Patient presents the following: Seizures, delirium tremens or hallucinations in the past 12 hours Admission Criteria Met: Admission criteria met Admission ROS S - HPI Chief Complaint: "I really want to stop drinking" Allergies/Adverse Reactions: Allergies Allergy/AdvReac Type Severity Reaction Status Date / Time kiwi Allergy Severe Rash Verified 06/11/18 13:32 No Known Drug Allergies Allergy Verified 06/11/18 13:32 History of Present Illness: 67 yr old male presents for alcohol detox. Pt states he was at [facility] ER yesterday for alcohol-related incidence. Denies alcohol induced seizures but gets blackouts " a lot". Hx : HTN ( not taken meds in 2 yrs) Denies psychiatric hx Denies SI now or in the past - Ebola screening Have you traveled outside of the country in the last 21 days: No (N) Have you had contact with anyone from an Ebola affected area: No Have you been sick,other than usual withdrawal symptoms: No Do you have a fever: No - Review of Systems Constitutional: Loss of Appetite, Changes in sleep, Unintentional Wgt. Loss EENT: reports: Cataracts, Blurred Vision (wears glasses), Dental Problems ( missing teeth) Respiratory: reports: No Symptoms reported Cardiac: reports: No Symptoms Reported GI: reports: Diarrhea, Poor Appetite : reports: No Symptoms Reported Musculoskeletal: reports: Other ([place]) Integumentary: reports: No Symptoms Reported Neuro: reports: Headache Endocrine: reports: No Symptoms Reported Hematology: reports: No Symptoms Reported Psychiatric: reports: No Sypmtoms Reported, Mood/Affect Appropiate, Orientated x3 Other Systems: Reviewed and Negative Patient History - Patient Medical History Hx Anemia: No Hx Asthma: No Hx Chronic Obstructive Pulmonary Disease (COPD): No Hx Cancer: No Hx Cardiac Disorders: No Hx Congestive Heart Failure: No Hx Hypertension: Yes (Not on meds) Hx Hypercholesterolemia: No Hx Pacemaker: No HX Cerebrovascular Accident: No Hx Seizures: No Hx Dementia: No Hx Diabetes: No Hx Gastrointestinal Disorders: No Hx Liver Disease: No Hx Genitourinary Disorders: No Hx Sexually Transmitted Disorders: No Hx Renal Disease (ESRD): No Hx Thyroid Disease: No Hx Human Immunodeficiency Virus (HIV): No (last 2017 negative) Hx Hepatitis C: No Hx Depression: Yes Hx Suicide Attempt: No Hx Bipolar Disorder: Yes (no meds) Hx Schizophrenia: No - Patient Surgical History Past Surgical History: Yes Hx Neurologic Surgery: No Hx Cataract Extraction: No Hx Cardiac Surgery: No Hx Lung Surgery: No Hx Breast Surgery: No Hx Breast Biopsy: No Hx Abdominal Surgery: No Hx Appendectomy: Yes (at age of [age] years old) Hx Cholecystectomy: No Hx Genitourinary Surgery: No Hx Section: No Hx Orthopedic Surgery: Yes (right forearm in 1981) Anesthesia Reaction: No - PPD History Previous Implant?: Yes Documented Results: Negative w/proof Implanted On Prior R Admission?: Yes Date: 04/26/18 Results: 0 mm PPD to be Administered?: No - Reproductive History Patient is a Female of Child Bearing Age (11 -55 yrs old): No - Smoking Cessation Smoking history: Current every day smoker Have you smoked in the past 12 months: Yes Aproximately how many cigarettes per day: 20 Hx Chewing Tobacco Use: No Initiated information on smoking cessation: Yes 'Breaking Loose' booklet given: 06/11/18 - Substances Abused Alcohol Route: Oral Frequency: Daily Amount used: 6 PACKS AND 2 LITER VODKA Age of first use: 11 Date of Last Use: 06/11/18 Family Disease History - Family Disease History Family Disease History: CA: Father (THORAT CA, ALCOHOL,), Mother ( LEUKEMIA), Brother (LEUKEMIA), Other: Father Admission Physical Exam [facility] - Vital Signs Vital Signs: Vital Signs - 24 hr 02/10/19 10:11 Temperature 99.2 F Pulse Rate 101 H Respiratory 18 Rate Blood Pressure 150/89 - Physical General Appearance: Yes: Appropriately Dressed, Mild Distress, Anxious HEENTM: Yes: Nasal Congestion, Other (wears glasses, missing teeth) Respiratory: Yes: Lungs Clear, Normal Breath Sounds, No Respiratory Distress, No Accessory Muscle Use Neck: Yes: No masses,lesions,Nodules, Trachea in good position Breast: Yes: Breast Exam Deferred Cardiology: Yes: Regular Rate Abdominal: Yes: Normal Bowel Sounds, Non Tender, Distended Genitourinary: Yes: Within Normal Limits Back: Yes: Normal Inspection Musculoskeletal: Yes: Within Normal Limits, full range of Motion, Gait Steady Extremities: Yes: Normal Capillary Refill, Normal Inspection, Normal Range of Motion Neurological: Yes: Fully Oriented, Alert, Motor Strength 5/5, Normal Mood/Affect , Normal Response Integumentary: Yes: Normal Color, Warm Lymphatic: Yes: Within Normal Limits - Diagnostic (1) Alcohol dependence with uncomplicated withdrawal Current Visit: Yes Status: Acute (2) Nicotine dependence Current Visit: Yes Status: Chronic Qualifiers: Nicotine product type: cigarettes Substance use status: uncomplicated Qualified Code(s): F17.210 - Nicotine dependence, cigarettes, uncomplicated (3) HTN (hypertension) Current Visit: Yes Status: Chronic Qualifiers: Hypertension type: essential hypertension Qualified Code(s): I10 - Essential (primary) hypertension Cleared for Admission S - Detox or Rehab [facility] Level of Care: Medically Managed Detox Regimen/Protocol: Librium [facility] Breath Alcohol Content Breath Alcohol Content: 0.076 Urine Drug Screen - Results Drug Screen Negative: No Urine Drug Screen Results: BZO-Benzodiazepines Inpatient Rehab Admission - Rehab Decision to Admit Inpatient rehab admission?: No
[2018-06-11] MEDS ORDERED: MAGNESIUM CITRATE 300 ML BOTTLE PO PRN (14:42)
[2018-06-11] MEDS ORDERED: chlordiazePOXIDE HCL 25 MG CAPSULE PO PRN (14:42)
[2018-06-11] MEDS ORDERED: ACETAMINOPHEN 325 MG TABLET (FP) PO PRN (14:42)
[2018-06-11] MEDS ORDERED: P-EPHED 60MG/TRIPROLIDI 2.5MG TABLET PO PRN (14:42)
[2018-06-11] MEDS ORDERED: MAG HYDROX/AL HYDROX/SIMETH 30 ML UNIT-DOSE CUP PO PRN (14:42)
[2018-06-11] MEDS ORDERED: MAGNESIUM HYDROX 2400MG/30ML ORAL SUSPENSION 30 ML CUP PO PRN (14:42)
[2018-06-11] MEDS ORDERED: guaiFENesin/D-METHORPHAN HB 10 ML UNIT-DOSE CUPS PO PRN (14:42)
[2018-06-11] MEDS ORDERED: MENTHOL/PHENOL 1 EACH UD MM PRN (14:42)
[2018-06-11] MEDS ORDERED: IBUPROFEN 400 MG TABLET (FP) PO PRN (14:42)
[2018-06-11] MEDS ORDERED: LOPERAMIDE HCL 2 MG CAPSULE PO PRN (14:42)
[2018-06-11] MEDS ORDERED: chlordiazePOXIDE HCL 25 MG CAPSULE PO ONE (15:30)
[2018-06-11] MEDS: NICOTINE 21 MG/24 HOURS TOPICAL PATCH TD SCH (16:03)
[2018-06-11] MEDS: chlordiazePOXIDE HCL 25 MG CAPSULE PO SCH ×2 (16:37→22:24)
[2018-06-11] MEDS ORDERED: MELATONIN 5 MG TABLETS PO PRN (22:00)
[2018-06-11] MEDS: THIAMINE HCL 100 MG TABLET (FP) PO SCH (22:24)
[2018-06-12] MEDS: chlordiazePOXIDE HCL 25 MG CAPSULE PO SCH ×4 (06:10→22:33)
[2018-06-12 09:50] LABS: HEMATOCRIT 39.2 % (35.4-49); HEMOGLOBIN 13.3 GM/dL (11.7-16.9); MCH 31.1 pg (25.7-33.7); MEAN CELL VOLUME 91.4 fl (80-96); MEAN PLT VOLUME 8.1 fl (7.5-11.1); PLATELET COUNT 249 K/MM3 (134-434); RBC 4.28 M/mm3 (4.00-5.60); RDW 17.5 % (11.9-15.9); WHITE BLOOD COUNT 4.2 K/mm3 (4.0-10.0)
[2018-06-12 10:17] LABS: ALBUMIN 3.8 g/dl (3.4-5.0); ALK PHOS 160 U/L (45-117); ANION GAP 7 MMOL/L (8-16); BILIRUBIN,TOTAL 0.4 mg/dL (0.2-1); BLOOD UREA NITROGEN 12 mg/dL (7-18); CALCIUM 9.6 mg/dL (8.5-10.1); CHLORIDE 97 mmol/L (98-107); CO2 30 mmol/L (21-32); CREATININE 0.9 mg/dL (0.55-1.3); GLUCOSE,RANDOM 90 mg/dL (74-106); POTASSIUM 3.8 mmol/L (3.5-5.1); SGOT/AST 25 U/L (15-37); SGPT/ALT 35 U/L (13-61); SODIUM 134 mmol/L (136-145); TOT PROT 8.4 g/dl (6.4-8.2)
[2018-06-12] MEDS: NICOTINE 21 MG/24 HOURS TOPICAL PATCH TD SCH (10:18)
[2018-06-12] MEDS: PRENATAL VITAMINS W/ FOLIC ACID TABLET (FP) PO SCH (10:18)
--- NOTE | 2018-06-12 14:23 | PN ---
S CIWA - CIWA Score Nausea/Vomitin-No Nausea/No Vomiting Muscle Tremors: 3 Anxiety: 0-No Anxiety, at Ease Agitation: 0-Normal Activity Paroxysmal Sweats: 3 Orientation: 2-Disoriented Date<2 days Tacttile Disturbances: 2-Mild Itch/Numbness/Burn Auditory Disturbances: 2-Mild Harshness/Frighten Visual Disturbances: 0-None Headache: 3-Moderate CIWA-Ar Total Score: 15 [facility] Progress Note (SOAP) Subjective: Sweating, Diarrhea, H/A, Tremors. Objective: PATIENT A & O X 2 (UNCERTAIN ABOUT CURRENT DAY / DATE). PATIENT OBSERVED AMBULATING ON UNIT. IN NO ACUTE DISTRESS. 06/12/18 14:20 Vital Signs Temperature 99.3 F 06/12/18 13:35 Pulse Rate 88 06/12/18 13:35 Respiratory Rate 16 06/12/18 13:35 Blood Pressure 141/89 06/12/18 13:35 O2 Sat by Pulse Oximetry (%) Laboratory Tests 06/12/18 06/12/18 06/12/18 07:50 07:50 07:50 WBC 4.2 RBC 4.28 Hgb 13.3 Hct 39.2 MCV 91.4 MCH 31.1 MCHC 34.0 RDW 17.5 H Plt Count 249 MPV 8.1 Sodium 134 L Potassium 3.8 Chloride 97 L Carbon Dioxide 30 Anion Gap 7 L BUN 12 Creatinine 0.9 Creat Clearance w eGFR > 60 Random Glucose 90 Calcium 9.6 Total Bilirubin 0.4 AST 25 ALT 35 Alkaline Phosphatase 160 H Total Protein 8.4 H Albumin 3.8 RPR Titer Nonreactive LABS NOTED. Assessment: 06/12/18 14:22 WITHDRAWAL SYMPTOMS. Plan: CONTINUE DETOX. INCREASE DAILY PO FLUID INTAKE. PRN IMMODIUM PO FOR DIARRHEA.
[2018-06-12] MEDS: METOPROLOL TARTRATE 25 MG TABLET (FP) PO SCH ×2 (21:14→22:33)
[2018-06-12] MEDS: THIAMINE HCL 100 MG TABLET (FP) PO SCH (22:33)
[2018-06-13] MEDS: chlordiazePOXIDE HCL 25 MG CAPSULE PO SCH ×2 (06:26→10:09)
[2018-06-13] MEDS: HYDROCHLOROTHIAZIDE 25 MG TABLET (FP) PO SCH (06:26)
[2018-06-13] MEDS: NICOTINE 21 MG/24 HOURS TOPICAL PATCH TD SCH (10:09)
[2018-06-13] MEDS: METOPROLOL TARTRATE 25 MG TABLET (FP) PO SCH ×2 (10:09→22:48)
[2018-06-13] MEDS: PRENATAL VITAMINS W/ FOLIC ACID TABLET (FP) PO SCH (10:09)
--- NOTE | 2018-06-13 10:37 | PN ---
S CIWA - CIWA Score Nausea/Vomitin Muscle Tremors: 2 Anxiety: 2 Agitation: 2 Paroxysmal Sweats: 1-Minimal Palms Moist Orientation: 0-Oriented Tacttile Disturbances: 1-Very Mild Itch/Numbness Auditory Disturbances: 1-Very Mild Visual Disturbances: 0-None Headache: 2-Mild CIWA-Ar Total Score: 13 [facility] Progress Note (SOAP) Subjective: alert,irritable,anxious,interrupted,tremor, Objective: 06/13/18 10:35 Vital Signs Temperature 97.9 F 06/13/18 09:46 Pulse Rate 104 H 06/13/18 09:46 Respiratory Rate 18 06/13/18 09:46 Blood Pressure 138/80 06/13/18 09:46 O2 Sat by Pulse Oximetry (%) Laboratory Last Values WBC 4.2 K/mm3 (4.0-10.0) 06/12/18 07:50 RBC 4.28 M/mm3 (4.00-5.60) 06/12/18 07:50 Hgb 13.3 GM/dL (11.7-16.9) 06/12/18 07:50 Hct 39.2 % (35.4-49) 06/12/18 07:50 MCV 91.4 fl (80-96) 06/12/18 07:50 MCH 31.1 pg (25.7-33.7) 06/12/18 07:50 MCHC 34.0 g/dl (32.0-35.9) 06/12/18 07:50 RDW 17.5 % (11.9-15.9) H 06/12/18 07:50 Plt Count 249 K/MM3 (134-434) 06/12/18 07:50 MPV 8.1 fl (7.5-11.1) 06/12/18 07:50 Sodium 134 mmol/L (136-145) L 06/12/18 07:50 Potassium 3.8 mmol/L (3.5-5.1) 06/12/18 07:50 Chloride 97 mmol/L (98-107) L 06/12/18 07:50 Carbon Dioxide 30 mmol/L (21-32) 06/12/18 07:50 Anion Gap 7 MMOL/L (8-16) L 06/12/18 07:50 BUN 12 mg/dL (7-18) 06/12/18 07:50 Creatinine 0.9 mg/dL (0.55-1.3) 06/12/18 07:50 Creat Clearance w eGFR > 60 (>60) 06/12/18 07:50 Random Glucose 90 mg/dL (74-106) 06/12/18 07:50 Calcium 9.6 mg/dL (8.5-10.1) 06/12/18 07:50 Total Bilirubin 0.4 mg/dL (0.2-1) 06/12/18 07:50 AST 25 U/L (15-37) 06/12/18 07:50 ALT 35 U/L (13-61) 06/12/18 07:50 Alkaline Phosphatase 160 U/L (45-117) H 06/12/18 07:50 Total Protein 8.4 g/dl (6.4-8.2) H 06/12/18 07:50 Albumin 3.8 g/dl (3.4-5.0) 06/12/18 07:50 RPR Titer Nonreactive (NONREACTIVE) 06/12/18 07:50 Assessment: 06/13/18 10:36 withdrawal symptom Plan: continue detox,start on amlodipine 10 mgs po daily and hydrochlorothiazide 50 mgs po daily
[2018-06-13] MEDS: amLODIPine BESYLATE 10 MG TABLET (FP) PO SCH (11:25)
[2018-06-13] MEDS: chlordiazePOXIDE 5 MG CAPSULE PO SCH ×2 (17:58→22:47)
[2018-06-13] MEDS: THIAMINE HCL 100 MG TABLET (FP) PO SCH (22:48)
[2018-06-14] MEDS: chlordiazePOXIDE 5 MG CAPSULE PO SCH ×2 (06:18→10:43)
[2018-06-14] MEDS: HYDROCHLOROTHIAZIDE 25 MG TABLET (FP) PO SCH (06:19)
[2018-06-14] MEDS: NICOTINE 21 MG/24 HOURS TOPICAL PATCH TD SCH (10:43)
[2018-06-14] MEDS: METOPROLOL TARTRATE 25 MG TABLET (FP) PO SCH ×2 (10:43→22:15)
[2018-06-14] MEDS: PRENATAL VITAMINS W/ FOLIC ACID TABLET (FP) PO SCH (10:43)
[2018-06-14] MEDS: amLODIPine BESYLATE 10 MG TABLET (FP) PO SCH (10:43)
--- NOTE | 2018-06-14 14:58 | PN ---
S Progress Note (SOAP) Subjective: Fatigue, Sweating. Objective: PATIENT A & O X 2 (UNCERTAIN ABOUT CURRENT DAY / DATE). PATIENT OBSERVED AMBULATING ON UNIT. IN NO ACUTE DISTRESS. 06/14/18 14:54 Vital Signs Temperature 98.3 F 06/14/18 13:50 Pulse Rate 74 06/14/18 13:50 Respiratory Rate 18 06/14/18 13:50 Blood Pressure 102/65 06/14/18 13:50 O2 Sat by Pulse Oximetry (%) Laboratory Tests 06/12/18 06/12/18 06/12/18 07:50 07:50 07:50 WBC 4.2 RBC 4.28 Hgb 13.3 Hct 39.2 MCV 91.4 MCH 31.1 MCHC 34.0 RDW 17.5 H Plt Count 249 MPV 8.1 Sodium 134 L Potassium 3.8 Chloride 97 L Carbon Dioxide 30 Anion Gap 7 L BUN 12 Creatinine 0.9 Creat Clearance w eGFR > 60 Random Glucose 90 Calcium 9.6 Total Bilirubin 0.4 AST 25 ALT 35 Alkaline Phosphatase 160 H Total Protein 8.4 H Albumin 3.8 RPR Titer Nonreactive LABS NOTED. Assessment: 06/14/18 14:55 COMPLETION OF DETOX REGIMEN. Plan: PATIENT REPORTS THAT CURRENT WITHDRAWAL SYMPTOMS ARE MINIMAL AND THAT HE FEELS WELL OVERALL. BED IS CURRENTLY AVAILABLE AT [facility] ([place], [place]), PATIENT TO GO ON TO [facility] FOR AFTERCARE.
--- NOTE | 2018-06-14 15:02 | DS ---
[facility] Detox Discharge Summary Admission Date: 06/11/18 Discharge Date: 06/14/18 - History Present History: Alcohol Dependence Additional Comments: PATIENT REPORTS THAT CURRENT DETOX/WITHDRAWAL SYMPTOMS ARE MINIMAL AND THAT HE IS FLEEING WELL OVERALL, PATIENT IS GOING ON TO [facility] ( [place], [place]) FOR AFTERCARE. PATIENT WAS DISCHARGED FROM DETOX UNIT TO BE TAKEN OVER TO REHAB UNIT IN STABLE MEDICAL CONDITION. Pertinent Past History: HTN, History of Depression, History of Bipolar Disorder, Nicotine Dependence, Elevated Alkaline Phosphatase Level. - Physical Exam Results Vital Signs: Vital Signs Temperature 98.3 F 06/14/18 13:50 Pulse Rate 74 06/14/18 13:50 Respiratory Rate 18 06/14/18 13:50 Blood Pressure 102/65 06/14/18 13:50 O2 Sat by Pulse Oximetry (%) Pertinent Admission Physical Exam Findings: WITHDRAWAL SYMPTOMS. Laboratory Tests 06/12/18 06/12/18 06/12/18 07:50 07:50 07:50 WBC 4.2 RBC 4.28 Hgb 13.3 Hct 39.2 MCV 91.4 MCH 31.1 MCHC 34.0 RDW 17.5 H Plt Count 249 MPV 8.1 Sodium 134 L Potassium 3.8 Chloride 97 L Carbon Dioxide 30 Anion Gap 7 L BUN 12 Creatinine 0.9 Creat Clearance w eGFR > 60 Random Glucose 90 Calcium 9.6 Total Bilirubin 0.4 AST 25 ALT 35 Alkaline Phosphatase 160 H Total Protein 8.4 H Albumin 3.8 RPR Titer Nonreactive LABS NOTED. - Treatment Hospital Course: Detox Protocol Followed, Detoxed Safely, Responded well, Discharged Condition Good, Rehab Referral Accepted Patient has Accepted a Rehab Referral to: [facility] ([place], [place]). - Medication Discharge Medications: Ambulatory Orders NK [No Known Home Medication] 06/11/18 - Diagnosis (1) Alcohol dependence with uncomplicated withdrawal Current Visit: Yes Status: Acute (2) HTN (hypertension) Current Visit: Yes Status: Chronic Qualifiers: Hypertension type: essential hypertension Qualified Code(s): I10 - Essential (primary) hypertension (3) Nicotine dependence Current Visit: Yes Status: Chronic Qualifiers: Nicotine product type: cigarettes Substance use status: uncomplicated Qualified Code(s): F17.210 - Nicotine dependence, cigarettes, uncomplicated - AMA Did Patient Leave Against Medical Advice: No
[2018-06-14] MEDS: chlordiazePOXIDE HCL 10 MG CAPSULE PO SCH ×2 (18:06→22:15)
[2018-06-14] MEDS: THIAMINE HCL 100 MG TABLET (FP) PO SCH (22:15)
[2018-06-15] MEDS: HYDROCHLOROTHIAZIDE 25 MG TABLET (FP) PO SCH (05:42)
[2018-06-15] MEDS: chlordiazePOXIDE HCL 10 MG CAPSULE PO SCH ×2 (05:42→10:25)
--- NOTE | 2018-06-15 08:39 | DS ---
[facility] Detox Discharge Summary Admission Date: 06/11/18 Discharge Date: 06/15/18 - History Present History: Alcohol Dependence - Physical Exam Results Vital Signs: Vital Signs Temperature 97.9 F 06/15/18 07:01 Pulse Rate 64 06/15/18 07:01 Respiratory Rate 18 06/15/18 07:01 Blood Pressure 101/54 L 06/15/18 07:01 O2 Sat by Pulse Oximetry (%) - Treatment Hospital Course: Detox Protocol Followed, Detoxed Safely, Responded well, Discharged Condition Good, Rehab Referral Accepted - Medication Discharge Medications: Ambulatory Orders NK [No Known Home Medication] 06/11/18 - Diagnosis (1) Alcohol dependence with uncomplicated withdrawal Current Visit: Yes Status: Chronic (2) Elevated alkaline phosphatase level Current Visit: Yes Status: Acute (3) HTN (hypertension) Current Visit: Yes Status: Chronic Qualifiers: Hypertension type: essential hypertension Qualified Code(s): I10 - Essential (primary) hypertension (4) Nicotine dependence Current Visit: Yes Status: Chronic Qualifiers: Nicotine product type: cigarettes Substance use status: uncomplicated Qualified Code(s): F17.210 - Nicotine dependence, cigarettes, uncomplicated (5) Alcohol dependence, episodic drinking behavior Current Visit: No Status: Acute (6) Drug-induced mood disorder Current Visit: No Status: Acute (7) History of appendectomy Current Visit: No Status: Acute (8) Insomnia Current Visit: No Status: Acute (9) Weight loss Current Visit: No Status: Acute (10) Bipolar disorder Current Visit: No Status: Chronic Qualifiers: Most recent bipolar episode type: most recent episode unspecified type - AMA Did Patient Leave Against Medical Advice: No (referred to rehab. )
[2018-06-15 09:06] VITALS: TEMP 97.2
[2018-06-15] MEDS: NICOTINE 21 MG/24 HOURS TOPICAL PATCH TD SCH (10:25)
[2018-06-15] MEDS: amLODIPine BESYLATE 10 MG TABLET (FP) PO SCH (10:25)
[2018-06-15] MEDS: METOPROLOL TARTRATE 25 MG TABLET (FP) PO SCH (10:25)
[2018-06-15] MEDS: PRENATAL VITAMINS W/ FOLIC ACID TABLET (FP) PO SCH (10:25)
[2018-06-15 12:58] VITALS: BP 118/75; PULSE 73
== END 2018-06-15 12:50 | disposition other institution (70) | DRG 897 ==
LOC: YASAS 09:30 → Y6N 13:43
PROVIDERS: ADMIT Surgery; ATTEND Surgery
PROC: HZ2ZZZZ Detoxification Services for Substance Abuse Treatment (ICD-10-PCS; principal; 2018-06-11)
DX: F10.230 Alcohol dependence with withdrawal, uncomplicated (principal); F17.210 Nicotine dependence, cigarettes, uncomplicated; F19.24 Other psychoactive substance dependence with psychoactive substance-induced mood disorder; F31.9 Bipolar disorder, unspecified; I10 Essential (primary) hypertension; G47.00 Insomnia, unspecified; R74.8 Abnormal levels of other serum enzymes
CPT/HCPCS: 36415; 80053; 85027; 86593

== ENCOUNTER 2018-06-15 13:04 | Inpatient (IN) | payer OTHER ==
--- NOTE | 2018-06-14 15:27 | HP ---
NIHARIKA MANN Rehab Assess/Revision - Admission History Admitted to Rehab from: [facility] Date of Admission to Rehab: 06/14/2018 - Vital signs Vital Signs: NOTED; STABLE. - Findings Detox History & Physical reviewed: Yes Concur with findings: Yes Comments/Additional Findings: PATIENT'S MEDICAL / MEDICATION HISTORY REVIEWED PRIOR TO DISCHARGE FROM DETOX UNIT. PATIENT WAS DISCHARGED FROM DETOX UNIT TO BE TAKEN TO REHAB UNIT IN STABLE MEDICAL CONDITION. Inpatient Rehab Admission - Rehab Decision to Admit Inpatient rehab admission?: Yes - Initial Determination Are CD services needed?: Yes Free of communicable disease: Yes Not in need of hospitalization: Yes - Rehab Admission Criteria Previous failed treatment: Yes Poor recovery environment: Yes Comorbidities: Yes Lacks judgement: No Patient is meeting Inpatient Rehab admission criteria:: Yes
--- NOTE | 2018-06-15 11:41 | HP ---
NIHARIKA MANN Rehab Assess/Revision - Admission History Admitted to Rehab [facility]: [facility] - Findings Detox History & Physical reviewed: Yes Concur with findings: Yes Inpatient Rehab Admission - Rehab Decision to Admit Inpatient rehab admission?: Yes - Initial Determination Are CD services needed?: Yes Free of communicable disease: Yes Not in need of hospitalization: Yes - Rehab Admission Criteria Previous failed treatment: Yes Poor recovery environment: Yes Comorbidities: Yes Lacks judgement: Yes Patient is meeting Inpatient Rehab admission criteria:: Yes
[~2018-06-15 13:04] MED LIST: LOPERAMIDE HCL 2 MG CAPSULE PO PRN; MAG HYDROX/AL HYDROX/SIMETH 30 ML UNIT-DOSE CUP PO PRN; MAGNESIUM CITRATE 300 ML BOTTLE PO PRN; MAGNESIUM HYDROX 2400MG/30ML ORAL SUSPENSION 30 ML CUP PO PRN; MENTHOL/PHENOL 1 EACH UD MM PRN; P-EPHED 60MG/TRIPROLIDI 2.5MG TABLET PO PRN; guaiFENesin/D-METHORPHAN HB 10 ML UNIT-DOSE CUPS PO PRN
[2018-06-15] MEDS: THIAMINE HCL 100 MG TABLET (FP) PO SCH ×2 (13:51→21:28)
[2018-06-15] MEDS: HYDROCHLOROTHIAZIDE 50 MG TABLET PO SCH (13:51)
[2018-06-15] MEDS: NICOTINE 21 MG/24 HOURS TOPICAL PATCH TD SCH (13:51)
[2018-06-15] MEDS: amLODIPine BESYLATE 10 MG TABLET (FP) PO SCH (14:50)
[2018-06-15] MEDS: PRENATAL VITAMINS W/ FOLIC ACID TABLET (FP) PO SCH (14:51)
[2018-06-16] MEDS: HYDROCHLOROTHIAZIDE 50 MG TABLET PO SCH (06:11)
[2018-06-16] MEDS: PRENATAL VITAMINS W/ FOLIC ACID TABLET (FP) PO SCH (10:02)
[2018-06-16] MEDS: NICOTINE 21 MG/24 HOURS TOPICAL PATCH TD SCH (10:02)
[2018-06-16] MEDS: amLODIPine BESYLATE 10 MG TABLET (FP) PO SCH (10:02)
[2018-06-16] MEDS: MELATONIN 5 MG TABLETS PO PRN (21:36)
[2018-06-16] MEDS: THIAMINE HCL 100 MG TABLET (FP) PO SCH (21:36)
[2018-06-17] MEDS: HYDROCHLOROTHIAZIDE 50 MG TABLET PO SCH (06:04)
[2018-06-17] MEDS: NICOTINE 21 MG/24 HOURS TOPICAL PATCH TD SCH (10:43)
[2018-06-17] MEDS: amLODIPine BESYLATE 10 MG TABLET (FP) PO SCH (10:43)
[2018-06-17] MEDS: PRENATAL VITAMINS W/ FOLIC ACID TABLET (FP) PO SCH (10:43)
[2018-06-17] MEDS: THIAMINE HCL 100 MG TABLET (FP) PO SCH (21:39)
[2018-06-18] MEDS: HYDROCHLOROTHIAZIDE 50 MG TABLET PO SCH (06:30)
[2018-06-18] MEDS ORDERED: HYDROCHLOROTHIAZIDE 25 MG TABLET (FP) PO SCH (06:45)
[2018-06-18] MEDS: amLODIPine BESYLATE 10 MG TABLET (FP) PO SCH (09:54)
[2018-06-18] MEDS: PRENATAL VITAMINS W/ FOLIC ACID TABLET (FP) PO SCH (09:54)
[2018-06-18] MEDS: NICOTINE 21 MG/24 HOURS TOPICAL PATCH TD SCH (09:55)
[2018-06-18] MEDS: THIAMINE HCL 100 MG TABLET (FP) PO SCH (21:29)
[2018-06-18] MEDS: MELATONIN 5 MG TABLETS PO PRN (21:29)
[2018-06-19] MEDS: HYDROCHLOROTHIAZIDE 25 MG TABLET (FP) PO SCH (06:03)
[2018-06-19] MEDS: amLODIPine BESYLATE 10 MG TABLET (FP) PO SCH (09:57)
[2018-06-19] MEDS: NICOTINE 21 MG/24 HOURS TOPICAL PATCH TD SCH (09:57)
[2018-06-19] MEDS: PRENATAL VITAMINS W/ FOLIC ACID TABLET (FP) PO SCH (09:57)
[2018-06-19] MEDS: MELATONIN 5 MG TABLETS PO PRN (21:39)
[2018-06-19] MEDS: THIAMINE HCL 100 MG TABLET (FP) PO SCH (21:39)
[2018-06-20] MEDS: HYDROCHLOROTHIAZIDE 25 MG TABLET (FP) PO SCH (07:55)
[2018-06-20] MEDS: amLODIPine BESYLATE 10 MG TABLET (FP) PO SCH (10:40)
[2018-06-20] MEDS: PRENATAL VITAMINS W/ FOLIC ACID TABLET (FP) PO SCH (10:40)
[2018-06-20] MEDS: NICOTINE 21 MG/24 HOURS TOPICAL PATCH TD SCH (10:44)
[2018-06-20] MEDS: THIAMINE HCL 100 MG TABLET (FP) PO SCH (23:13)
[2018-06-21] MEDS: HYDROCHLOROTHIAZIDE 25 MG TABLET (FP) PO SCH (05:53)
[2018-06-21] MEDS: PRENATAL VITAMINS W/ FOLIC ACID TABLET (FP) PO SCH (10:15)
[2018-06-21] MEDS: NICOTINE 21 MG/24 HOURS TOPICAL PATCH TD SCH (10:15)
[2018-06-21] MEDS: amLODIPine BESYLATE 10 MG TABLET (FP) PO SCH (10:15)
[2018-06-21] MEDS: THIAMINE HCL 100 MG TABLET (FP) PO SCH (21:36)
[2018-06-22] MEDS: HYDROCHLOROTHIAZIDE 25 MG TABLET (FP) PO SCH (06:05)
[2018-06-22] MEDS: PRENATAL VITAMINS W/ FOLIC ACID TABLET (FP) PO SCH (10:17)
[2018-06-22] MEDS: amLODIPine BESYLATE 10 MG TABLET (FP) PO SCH (10:17)
[2018-06-22] MEDS: NICOTINE 21 MG/24 HOURS TOPICAL PATCH TD SCH (10:18)
[2018-06-22] MEDS: THIAMINE HCL 100 MG TABLET (FP) PO SCH (21:34)
[2018-06-22] MEDS: ACETAMINOPHEN 325 MG TABLET (FP) PO PRN (21:35)
[2018-06-23] MEDS: HYDROCHLOROTHIAZIDE 25 MG TABLET (FP) PO SCH (05:54)
[2018-06-23] MEDS: NICOTINE 21 MG/24 HOURS TOPICAL PATCH TD SCH (10:21)
[2018-06-23] MEDS: amLODIPine BESYLATE 10 MG TABLET (FP) PO SCH (10:21)
[2018-06-23] MEDS: PRENATAL VITAMINS W/ FOLIC ACID TABLET (FP) PO SCH (10:21)
[2018-06-23] MEDS: THIAMINE HCL 100 MG TABLET (FP) PO SCH (21:40)
[2018-06-23] MEDS: MELATONIN 5 MG TABLETS PO PRN (21:41)
[2018-06-24] MEDS: HYDROCHLOROTHIAZIDE 25 MG TABLET (FP) PO SCH (06:18)
[2018-06-24] MEDS: NICOTINE 21 MG/24 HOURS TOPICAL PATCH TD SCH (10:00)
[2018-06-24] MEDS: PRENATAL VITAMINS W/ FOLIC ACID TABLET (FP) PO SCH (10:00)
[2018-06-24] MEDS: amLODIPine BESYLATE 10 MG TABLET (FP) PO SCH (10:00)
[2018-06-24] MEDS: THIAMINE HCL 100 MG TABLET (FP) PO SCH (21:46)
[2018-06-24] MEDS: MELATONIN 5 MG TABLETS PO PRN (21:47)
[2018-06-25] MEDS: HYDROCHLOROTHIAZIDE 25 MG TABLET (FP) PO SCH (06:18)
[2018-06-25] MEDS: NICOTINE 21 MG/24 HOURS TOPICAL PATCH TD SCH (09:47)
[2018-06-25] MEDS: amLODIPine BESYLATE 10 MG TABLET (FP) PO SCH (09:47)
[2018-06-25] MEDS: PRENATAL VITAMINS W/ FOLIC ACID TABLET (FP) PO SCH (09:47)
[2018-06-25] MEDS: ACETAMINOPHEN 325 MG TABLET (FP) PO PRN (17:06)
[2018-06-25] MEDS: MELATONIN 5 MG TABLETS PO PRN (21:12)
[2018-06-25] MEDS: THIAMINE HCL 100 MG TABLET (FP) PO SCH (21:12)
[2018-06-26] MEDS: HYDROCHLOROTHIAZIDE 25 MG TABLET (FP) PO SCH (06:12)
[2018-06-26] MEDS: amLODIPine BESYLATE 10 MG TABLET (FP) PO SCH (10:31)
[2018-06-26] MEDS: PRENATAL VITAMINS W/ FOLIC ACID TABLET (FP) PO SCH (10:31)
[2018-06-26] MEDS: NICOTINE 21 MG/24 HOURS TOPICAL PATCH TD SCH (10:32)
[2018-06-26] MEDS: MELATONIN 5 MG TABLETS PO PRN (21:22)
[2018-06-26] MEDS: THIAMINE HCL 100 MG TABLET (FP) PO SCH (21:22)
[2018-06-27] MEDS: HYDROCHLOROTHIAZIDE 25 MG TABLET (FP) PO SCH (06:02)
[2018-06-27] MEDS: amLODIPine BESYLATE 10 MG TABLET (FP) PO SCH (10:14)
[2018-06-27] MEDS: NICOTINE 21 MG/24 HOURS TOPICAL PATCH TD SCH (10:14)
[2018-06-27] MEDS: PRENATAL VITAMINS W/ FOLIC ACID TABLET (FP) PO SCH (10:14)
[2018-06-27] MEDS: MELATONIN 5 MG TABLETS PO PRN (21:25)
[2018-06-27] MEDS: THIAMINE HCL 100 MG TABLET (FP) PO SCH (21:25)
[2018-06-28] MEDS: HYDROCHLOROTHIAZIDE 25 MG TABLET (FP) PO SCH (05:51)
[2018-06-28] MEDS: amLODIPine BESYLATE 10 MG TABLET (FP) PO SCH (10:45)
[2018-06-28] MEDS: NICOTINE 21 MG/24 HOURS TOPICAL PATCH TD SCH (10:45)
[2018-06-28] MEDS: PRENATAL VITAMINS W/ FOLIC ACID TABLET (FP) PO SCH (10:45)
[2018-06-28] MEDS: THIAMINE HCL 100 MG TABLET (FP) PO SCH (21:31)
[2018-06-28] MEDS: MELATONIN 5 MG TABLETS PO PRN (21:31)
[2018-06-29] MEDS: HYDROCHLOROTHIAZIDE 25 MG TABLET (FP) PO SCH (06:22)
[2018-06-29] MEDS: PRENATAL VITAMINS W/ FOLIC ACID TABLET (FP) PO SCH (10:05)
[2018-06-29] MEDS: NICOTINE 21 MG/24 HOURS TOPICAL PATCH TD SCH (10:05)
[2018-06-29] MEDS: amLODIPine BESYLATE 10 MG TABLET (FP) PO SCH (10:05)
--- NOTE | 2018-06-29 11:26 | CONSULT ---
[facility] Psychiatric Consult - Data Date of interview: 06/29/18 Admission source: Self-referred Identifying data: Mr Martinez is a 67 years old male living as , father of a, unemployed receiving benefit, domiciled seeking detox treatment for alcohol Substance Abuse History: Reports history of alcohol use. He started drinking alcohol at age 11, consumes 2 liters of vodka daily. Last drank on 06/11/18. Refer to addiction counselor's summary for further information Medical History: Significant for hypertension, history of appendectomy at age 30 and orthosurgery for fracture of right forearm. Smokes cigaretted 1 ppd Psychiatric History: Patient denies previous psychiatric hospitalization or suicidal attempt. However, reports that he was diagnosed with Bipolar Disorder in the s while in residential program at [facility]. Claims that he was prescribed Seroquel. Reports that since and untill 2 years ago, he has been prescribed that medication by his primary [facility] at the [facility]. Denies receiving psychiatric services at the [facility] as reported in entry from previous admission in this facility that he was prescribed Seroquel up to 400 mg due to racing thoughts. Outpatient psychiatric care was most recently provided at [facility] [place] one year ago. During the beginning of treatment he was started on seroquel 100mg but due to his racing thoughts his seroquel was increased to 400mg. According to entry from previous admission, he was last prescribed Seroquel 50 mg/hs by KAEL Simms in April 27, 2018. He is unwilling to take seroquel during this admission course saying:"I'm doing well without it" At present, denies experiencing psychotic, manic or depressive symptoms, S/H ideations Physical/Sexual Abuse/Trauma History: Denies history of emotional, physical or sexual abuse as well as DV relationship. 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 Claims that his discharge was honorable Mental Status Exam - Mental Status Exam Alert and Oriented to: Time, Place, Person Cognitive Function: Fair Patient Appearance: Well Groomed Mood: Hopeful, Euthymic Patient Behavior: Cooperative Speech Pattern: Clear Voice Loudness: Normal Thought Process: Intact, Goal Oriented Hallucinations: Denies Suicidal Ideation: Denies Homicidal Ideation: Denies Insight/Judgement: Fair Sleep: Poorly Appetite: Good Muscle strength/Tone: Normal Gait/Station: Normal Psychiatric Findings - Problem List ([place] 1, 2,3) (1) Bipolar disorder Current Visit: No Status: Chronic Qualifiers: Most recent bipolar episode type: most recent episode unspecified type Comment: Noncompliant with treatment. (2) Alcohol-induced sleep disorder Current Visit: Yes Status: Acute (3) Alcohol dependence Current Visit: Yes Status: Acute (4) Nicotine dependence Current Visit: No Status: Chronic Qualifiers: Nicotine product type: cigarettes Substance use status: uncomplicated Qualified Code(s): F17.210 - Nicotine dependence, cigarettes, uncomplicated (5) HTN (hypertension) Current Visit: No Status: Chronic Qualifiers: Hypertension type: essential hypertension Qualified Code(s): I10 - Essential (primary) hypertension - Initial Treatment Plan Initial Treatment Plan: Continue inpatient rehabilitation
[2018-06-29] MEDS: MELATONIN 5 MG TABLETS PO PRN (21:39)
[2018-06-29] MEDS: THIAMINE HCL 100 MG TABLET (FP) PO SCH (21:39)
[2018-06-30] MEDS: HYDROCHLOROTHIAZIDE 25 MG TABLET (FP) PO SCH (06:18)
[2018-06-30] MEDS: PRENATAL VITAMINS W/ FOLIC ACID TABLET (FP) PO SCH (10:28)
[2018-06-30] MEDS: amLODIPine BESYLATE 10 MG TABLET (FP) PO SCH (10:28)
[2018-06-30] MEDS: NICOTINE 21 MG/24 HOURS TOPICAL PATCH TD SCH (10:28)
[2018-06-30] MEDS: THIAMINE HCL 100 MG TABLET (FP) PO SCH (21:24)
[2018-06-30] MEDS: MELATONIN 5 MG TABLETS PO PRN (21:24)
[2018-07-01] MEDS: HYDROCHLOROTHIAZIDE 25 MG TABLET (FP) PO SCH (06:10)
[2018-07-01] MEDS: amLODIPine BESYLATE 10 MG TABLET (FP) PO SCH (10:29)
[2018-07-01] MEDS: PRENATAL VITAMINS W/ FOLIC ACID TABLET (FP) PO SCH (10:29)
[2018-07-01] MEDS: NICOTINE 21 MG/24 HOURS TOPICAL PATCH TD SCH (10:29)
[2018-07-01] MEDS: THIAMINE HCL 100 MG TABLET (FP) PO SCH (21:52)
[2018-07-01] MEDS: MELATONIN 5 MG TABLETS PO PRN (21:52)
[2018-07-02] MEDS: HYDROCHLOROTHIAZIDE 25 MG TABLET (FP) PO SCH (06:15)
[2018-07-02] MEDS: NICOTINE 21 MG/24 HOURS TOPICAL PATCH TD SCH (09:35)
[2018-07-02] MEDS: PRENATAL VITAMINS W/ FOLIC ACID TABLET (FP) PO SCH (09:35)
[2018-07-02] MEDS: amLODIPine BESYLATE 10 MG TABLET (FP) PO SCH (09:35)
[2018-07-02] MEDS: THIAMINE HCL 100 MG TABLET (FP) PO SCH (21:36)
[2018-07-02] MEDS: MELATONIN 5 MG TABLETS PO PRN (21:36)
[2018-07-03] MEDS: HYDROCHLOROTHIAZIDE 25 MG TABLET (FP) PO SCH (06:49)
[2018-07-03] MEDS: amLODIPine BESYLATE 10 MG TABLET (FP) PO SCH (09:54)
[2018-07-03] MEDS: PRENATAL VITAMINS W/ FOLIC ACID TABLET (FP) PO SCH (09:54)
[2018-07-03] MEDS: NICOTINE 21 MG/24 HOURS TOPICAL PATCH TD SCH (09:55)
[2018-07-03] MEDS: THIAMINE HCL 100 MG TABLET (FP) PO SCH (21:30)
[2018-07-03] MEDS: MELATONIN 5 MG TABLETS PO PRN (21:30)
[2018-07-04] MEDS: HYDROCHLOROTHIAZIDE 25 MG TABLET (FP) PO SCH (06:42)
[2018-07-04] MEDS: PRENATAL VITAMINS W/ FOLIC ACID TABLET (FP) PO SCH (10:41)
[2018-07-04] MEDS: amLODIPine BESYLATE 10 MG TABLET (FP) PO SCH (10:41)
[2018-07-04] MEDS: NICOTINE 21 MG/24 HOURS TOPICAL PATCH TD SCH (10:42)
[2018-07-04] MEDS: MELATONIN 5 MG TABLETS PO PRN (21:08)
[2018-07-04] MEDS: THIAMINE HCL 100 MG TABLET (FP) PO SCH (21:08)
[2018-07-05] MEDS: HYDROCHLOROTHIAZIDE 25 MG TABLET (FP) PO SCH (06:04)
[2018-07-05] MEDS: amLODIPine BESYLATE 10 MG TABLET (FP) PO SCH (10:16)
[2018-07-05] MEDS: PRENATAL VITAMINS W/ FOLIC ACID TABLET (FP) PO SCH (10:16)
[2018-07-05] MEDS: NICOTINE 21 MG/24 HOURS TOPICAL PATCH TD SCH (10:16)
[2018-07-05] MEDS: MELATONIN 5 MG TABLETS PO PRN (21:15)
[2018-07-05] MEDS: THIAMINE HCL 100 MG TABLET (FP) PO SCH (21:15)
[2018-07-06] MEDS: HYDROCHLOROTHIAZIDE 25 MG TABLET (FP) PO SCH (05:58)
[2018-07-06] MEDS ORDERED: PT OWN MED DRAWER 7, Y5N ONE (08:43)
[2018-07-06] MEDS: NICOTINE 21 MG/24 HOURS TOPICAL PATCH TD SCH (10:06)
[2018-07-06] MEDS: PRENATAL VITAMINS W/ FOLIC ACID TABLET (FP) PO SCH (10:06)
[2018-07-06] MEDS: amLODIPine BESYLATE 10 MG TABLET (FP) PO SCH (10:06)
--- NOTE | 2018-07-06 15:17 | PN ---
[facility] Progress Note Note: Client will be discharged tomorrow. Will be going to [facility] for aftercare. Goes to the [facility] for medical care. Will be seeking Section 8 housing or will go the the [facility]. Mr. Martinez does not have any home medications. Reports hx of ETOH abuse.
[2018-07-06] MEDS: THIAMINE HCL 100 MG TABLET (FP) PO SCH (21:18)
[2018-07-06] MEDS: MELATONIN 5 MG TABLETS PO PRN (21:18)
[2018-07-07] MEDS: HYDROCHLOROTHIAZIDE 25 MG TABLET (FP) PO SCH (05:56)
[2018-07-07 09:12] VITALS: BP 148/80; PULSE 90; TEMP 98.3
[2018-07-07] MEDS: PRENATAL VITAMINS W/ FOLIC ACID TABLET (FP) PO SCH (10:02)
[2018-07-07] MEDS: amLODIPine BESYLATE 10 MG TABLET (FP) PO SCH (10:02)
[2018-07-07] MEDS: NICOTINE 21 MG/24 HOURS TOPICAL PATCH TD SCH (10:03)
--- NOTE | 2018-07-07 13:20 | PN ---
[facility] Progress Note Note: PT COMPLETED REHAB AND DISCHARGED TODAY. PT SAHA BEEN REFERRED TO [facility] FOR CD AFTERCARE AND REPORTS HE HAS MEDICAL MANAGEMENT AT THE [facility]. ALERT O X 3. DENIES S/H/I. Home Medications Medication Instructions Recorded Amlodipine Besylate [Norvasc -] 10 mg PO DAILY #14 tablet 07/07/18 Hydrochlorothiazide [Hctz -] 25 mg PO DAILY@0600 #14 tablet 07/07/18 Vital Signs (72 hours) 07/05/18 07/05/18 07/05/18 00:30 07:02 09:30 Temperature 98.1 F Pulse Rate 94 H 94 H Respiratory 18 18 18 Rate Blood Pressure 135/87 134/78 07/06/18 07/06/18 07/06/18 00:30 07:01 09:30 Temperature 98.3 F Pulse Rate 78 90 Respiratory 18 18 18 Rate Blood Pressure 138/83 119/73 07/07/18 07/07/18 07/07/18 07:00 07:01 09:11 Temperature 98.1 F 98.1 F 98.3 F Pulse Rate 78 78 90 Respiratory 18 18 18 Rate Blood Pressure 121/81 121/81 148/80 NAD MEDICALLY STABLE PLAN:FOLLOW UP WITH CD AFTERCARE AT [facility] RECOMMENDED. FOLLOW UP WITH [facility] FOR MEDICAL MANAGEMENT.
== END 2018-07-07 10:15 | disposition home or self-care (01) | DRG 895 ==
LOC: YASAS 13:04 → Y3W 13:05
PROVIDERS: ADMIT Neuromusculoskeletal Medicine & OMM; ATTEND Neuromusculoskeletal Medicine & OMM
PROC: HZ42ZZZ Group Counseling for Substance Abuse Treatment, Cognitive-Behavioral (ICD-10-PCS; principal; 2018-06-15)
DX: F10.20 Alcohol dependence, uncomplicated (principal); F17.210 Nicotine dependence, cigarettes, uncomplicated; F10.282 Alcohol dependence with alcohol-induced sleep disorder; F31.9 Bipolar disorder, unspecified; I10 Essential (primary) hypertension

== ENCOUNTER 2018-07-14 12:48 | Inpatient (IN) | payer OTHER ==
[2018-07-14 13:25] VITALS: BMI 24.6
--- NOTE | 2018-07-14 14:55 | HP ---
CIWA Score Nausea/Vomitin Muscle Tremors: 3 Anxiety: 2 Agitation: 1-Slight > Activity Paroxysmal Sweats: 2 Orientation: 0-Oriented Tacttile Disturbances: 3-Moderate Itch/Numb/Burn Auditory Disturbances: 0-None Visual Disturbances: 0-None Headache: 1-Very Mild CIWA-Ar Total Score: 14 - Admission Criteria OASAS Guidelines: Admission for Medically Managed Detox: Requires at least one of the followin. CIWA greater than 12 2. Seizures within the past 24 hours 3. Delirium tremens within the past 24 hours 4. Hallucinations within the past 24 hours 5. Acute intervention needed for co occurring medical disorder 6. Acute intervention needed for co occurring psychiatric disorder 7. Severe withdrawal that cannot be handled at a lower level of care (continued vomiting, continued diarrhea, abnormal vital signs) requiring intravenous medication and/or fluids 8. Admission ROS [facility] Chief Complaint: ETOH WITHDRAWAL SX Allergies/Adverse Reactions: Allergies Allergy/AdvReac Type Severity Reaction Status Date / Time kiwi Allergy Severe Rash Verified 07/14/18 14:29 No Known Drug Allergies Allergy Verified 07/14/18 14:29 History of Present Illness: PATIENT PRESENTS WITH ETOH WITHDRAWAL SX. PATIENT IS KNOWN TO FACILITY DUE TO MULTIPLE ADMISSIONS. LAST ADMISSION 06/15/18. [place] [facility] [place] DUE TO ETOH INTOXICATION. PATIENT UDS + BZO. POOR HISTORIAN FOR DETAILS. PATIENT STARTED DRINKING AT AGE 11, DRINKS 4 PINTS OF VODKA AND 6 (24) OUNCE CANS OF BEER DAILY. LAST DRINK EARLY THIS MORNING. REX 0.00. PATIENT DENIES HX OF SEIZURES, + H/O BLACKOUTS, FALLS AND DTS. PATIENT HAS PMH INCLUDES HTN AND DEPRESSION. DENIES SI/HI AND SUICIDE ATTEMPTS. Exam Limitations: No Limitations - Ebola screening Have you traveled outside of the country in the last 21 days: No Have you had contact with anyone from an Ebola affected area: No Have you been sick,other than usual withdrawal symptoms: No Do you have a fever: No - Review of Systems Constitutional: Night Sweats EENT: reports: No Symptoms Reported Respiratory: reports: No Symptoms reported Cardiac: reports: No Symptoms Reported GI: reports: Diarrhea, Nausea, Poor Fluid Intake, Abdominal cramping : reports: No Symptoms Reported Musculoskeletal: reports: No Symptoms Reported Integumentary: reports: Sweating Neuro: reports: Headache, Numbness, Tingling, Tremors Endocrine: reports: [place] Hematology: reports: No Symptoms Reported Psychiatric: reports: Orientated x3, Anxious Patient History - Patient Medical History Hx Anemia: No Hx Asthma: No Hx Chronic Obstructive Pulmonary Disease (COPD): No Hx Cancer: No Hx Cardiac Disorders: No Hx Congestive Heart Failure: No Hx Hypertension: Yes Hx Hypercholesterolemia: No Hx Pacemaker: No HX Cerebrovascular Accident: No Hx Seizures: No Hx Dementia: No Hx Diabetes: No Hx Gastrointestinal Disorders: No Hx Liver Disease: No Hx Genitourinary Disorders: No Hx Sexually Transmitted Disorders: No Hx Renal Disease (ESRD): No Hx Thyroid Disease: No Hx Human Immunodeficiency Virus (HIV): No (last 2016 negative) Hx Hepatitis C: No Hx Depression: No Hx Suicide Attempt: No Hx Bipolar Disorder: Yes (no meds) Hx Schizophrenia: No - Patient Surgical History Past Surgical History: Yes Hx Neurologic Surgery: No Hx Cataract Extraction: No Hx Cardiac Surgery: No Hx Lung Surgery: No Hx Breast Surgery: No Hx Breast Biopsy: No Hx Abdominal Surgery: No Hx Appendectomy: Yes (at age of [age] years old) Hx Cholecystectomy: No Hx Genitourinary Surgery: No Hx Orthopedic Surgery: Yes (right forearm in 1981) Anesthesia Reaction: No - PPD History Previous Implant?: Yes Documented Results: Negative w/proof Implanted On Prior [facility] Admission?: Yes Date: 04/26/18 Results: 0 mm PPD to be Administered?: No - Reproductive History Patient : No - Smoking Cessation Smoking history: Current every day smoker Have you smoked in the past 12 months: Yes Aproximately how many cigarettes per day: 10 Hx Chewing Tobacco Use: No Initiated information on smoking cessation: Yes 'Breaking Loose' booklet given: 07/14/18 - Substance & Tx. History Hx Alcohol Use: Yes Hx Substance Use: No Substance Use Type: Alcohol Hx Substance Use Treatment: Yes - Substances Abused Alcohol Route: Oral Frequency: Daily Amount used: 4 1/2 pt vodka, 6 beers (24 ooz cans) Age of first use: 11 Date of Last Use: 07/14/18 Family Disease History - Family Disease History Family Disease History: CA: Father (THROAT CA, ALCOHOL,), Mother ( LEUKEMIA), Brother (LEUKEMIA), Other: Father Admission Physical Exam BHS - Vital Signs Vital Signs: Vital Signs - 24 hr 07/14/18 13:24 Temperature 98.6 F Pulse Rate 97 H Respiratory 20 Rate Blood Pressure 164/97 - Physical General Appearance: Yes: No Apparent Distress, Nourished, Appropriately Dressed , Tremorous, Sweating, Anxious HEENTM: Yes: EOMI, Hearing grossly Normal, Normocephalic, Normal Voice, MENA, Pharynx Normal, Tm's normal Respiratory: Yes: Chest Non-Tender, Lungs Clear, Normal Breath Sounds, No Respiratory Distress, No Accessory Muscle Use Neck: Yes: No masses,lesions,Nodules, Supple, Trachea in good position Breast: Yes: Breast Exam Deferred Cardiology: Yes: Regular Rhythm, Regular Rate, S1, S2 Abdominal: Yes: Normal Bowel Sounds, Non Tender, Soft Genitourinary: Yes: Within Normal Limits Back: Yes: Normal Inspection Musculoskeletal: Yes: full range of Motion, Gait Steady Extremities: Yes: Normal Range of Motion, Non-Tender, Tremors Neurological: Yes: prism inspector II-XII NML intact, Fully Oriented, Alert, Motor Strength 5/5, Normal Response, Other (ANXIOUS) Integumentary: Yes: Normal Color, Warm, Erythema, Moist Lymphatic: Yes: Within Normal Limits - Diagnostic (1) Alcohol dependence with uncomplicated withdrawal Current Visit: Yes Status: Acute (2) Bipolar disorder Current Visit: Yes Status: Chronic Qualifiers: Most recent bipolar episode type: most recent episode unspecified type Comment: Noncompliant with treatment. (3) HTN (hypertension) Current Visit: Yes Status: Chronic Qualifiers: Hypertension type: essential hypertension Qualified Code(s): I10 - Essential (primary) hypertension (4) Nicotine dependence Current Visit: Yes Status: Chronic Qualifiers: Nicotine product type: cigarettes Substance use status: uncomplicated Qualified Code(s): F17.210 - Nicotine dependence, cigarettes, uncomplicated Cleared for Admission S - Detox or Rehab [facility] Level of Care: Medically Managed Detox Regimen/Protocol: Librium [facility] Breath Alcohol Content Breath Alcohol Content: 0 Urine Drug Screen - Results Drug Screen Negative: No Urine Drug Screen Results: BZO-Benzodiazepines Inpatient Rehab Admission - Rehab Decision to Admit Inpatient rehab admission?: No
[2018-07-14] MEDS ORDERED: MAGNESIUM HYDROX 2400MG/30ML ORAL SUSPENSION 30 ML CUP PO PRN (15:07)
[2018-07-14] MEDS ORDERED: ACETAMINOPHEN 325 MG TABLET (FP) PO PRN (15:07)
[2018-07-14] MEDS ORDERED: MAGNESIUM CITRATE 300 ML BOTTLE PO PRN (15:07)
[2018-07-14] MEDS ORDERED: BISMUTH SUBSALICYLATE 524 MG/30 ML UD PO PRN (15:07)
[2018-07-14] MEDS ORDERED: IBUPROFEN 400 MG TABLET (FP) PO PRN (15:07)
[2018-07-14] MEDS ORDERED: NICOTINE POLACRILEX 2 MG GUM BUC PRN (15:07)
[2018-07-14] MEDS ORDERED: MENTHOL/PHENOL 1 EACH UD MM PRN (15:07)
[2018-07-14] MEDS ORDERED: DICYCLOMINE HCL 10 MG CAPSULE PO PRN (15:07)
[2018-07-14] MEDS ORDERED: hydrOXYzine PAMOATE 25 MG CAPSULE (FP) PO PRN (15:07)
[2018-07-14] MEDS ORDERED: MAG HYDROX/AL HYDROX/SIMETH 30 ML UNIT-DOSE CUP PO PRN (15:07)
[2018-07-14] MEDS ORDERED: chlordiazePOXIDE HCL 25 MG CAPSULE PO PRN (15:10)
[2018-07-14] MEDS: MELATONIN 5 MG TABLETS PO PRN (22:07)
[2018-07-14] MEDS: chlordiazePOXIDE HCL 25 MG CAPSULE PO SCH (22:07)
[2018-07-14] MEDS: THIAMINE HCL 100 MG TABLET (FP) PO SCH (22:07)
[2018-07-14] MEDS ORDERED: cloNIDine HCL 0.1 MG TABLET PO ONE (23:17)
[2018-07-15] MEDS: chlordiazePOXIDE HCL 25 MG CAPSULE PO SCH ×4 (06:00→22:41)
[2018-07-15] MEDS: HYDROCHLOROTHIAZIDE 25 MG TABLET (FP) PO SCH (06:02)
[2018-07-15] MEDS: PRENATAL VITAMINS W/ FOLIC ACID TABLET (FP) PO SCH (10:06)
[2018-07-15] MEDS: amLODIPine BESYLATE 10 MG TABLET (FP) PO SCH (10:06)
[2018-07-15] MEDS: NICOTINE 21 MG/24 HOURS TOPICAL PATCH TD SCH (10:08)
--- NOTE | 2018-07-15 10:39 | PN ---
[facility] CIWA - CIWA Score Nausea/Vomitin Muscle Tremors: 2 Anxiety: 2 Agitation: 1-Slight > Activity Paroxysmal Sweats: 2 Orientation: 0-Oriented Tacttile Disturbances: 1-Very Mild Itch/Numbness Auditory Disturbances: 0-None Visual Disturbances: 0-None Headache: 3-Moderate CIWA-Ar Total Score: 13 [facility] Progress Note (SOAP) Subjective: Headache, cramps, sweats, shakes and pain Objective: 07/15/18 10:38 Last Vital Signs Temp Pulse Resp BP Pulse Ox 97.9 F 92 H 18 106/87 07/15/18 10:00 07/15/18 10:00 07/15/18 10:00 07/15/18 10:00 Labs pending Assessment: 07/15/18 10:38 Withdrawal sx Plan: Continue detox Encouraged to ask for tylenol/motrin for headache
[2018-07-15 10:40] LABS: HEMATOCRIT 36.3 % (35.4-49); HEMOGLOBIN 12.6 GM/dL (11.7-16.9); MCH 31.5 pg (25.7-33.7); MCHC 34.8 g/dl (32.0-35.9); MEAN CELL VOLUME 90.4 fl (80-96); MEAN PLT VOLUME 8.5 fl (7.5-11.1); PLATELET COUNT 232 K/MM3 (134-434); RBC 4.01 M/mm3 (4.00-5.60); RDW 16.8 % (11.9-15.9); WHITE BLOOD COUNT 7.9 K/mm3 (4.0-10.0)
[2018-07-15 10:57] LABS: ALK PHOS 154 U/L (45-117); ANION GAP 12 MMOL/L (8-16); BILIRUBIN,TOTAL 0.7 mg/dL (0.2-1); BLOOD UREA NITROGEN 9 mg/dL (7-18); CALCIUM 9.6 mg/dL (8.5-10.1); CHLORIDE 94 mmol/L (98-107); CO2 25 mmol/L (21-32); CREATININE 0.9 mg/dL (0.55-1.3); GLUCOSE,RANDOM 134 mg/dL (74-106); POTASSIUM 3.3 mmol/L (3.5-5.1); SGOT/AST 49 U/L (15-37); SGPT/ALT 41 U/L (13-61); SODIUM 131 mmol/L (136-145)
[2018-07-15 13:00] LABS: URINE APPEARANCE CLEAR; URINE BILIRUBIN NEGATIVE (<2.0 mg/dL); URINE COLOR YELLOW; URINE GLUCOSE (UA) NEGATIVE (NEGATIVE); URINE KETONE NEGATIVE (NEGATIVE); URINE LEUK ESTERASE NEGATIVE (NEGATIVE); URINE NITRITE NEGATIVE (NEGATIVE); URINE PROTEIN 1+ (NEGATIVE); URINE UROBILINOGEN 4.0 E.U/dl mg/dL (0.2-1.0)
--- NOTE | 2018-07-15 13:09 | EKG ---
Test Reason : Blood Pressure : / mmHG Vent. Rate : 097 BPM Atrial Rate : 097 BPM P-R Int : 130 ms QRS Dur : 098 ms QT Int : 374 ms P-R-T Axes : 058 053 043 degrees QTc Int : 474 ms SINUS RHYTHM WITH PREMATURE ATRIAL COMPLEXES LEFT VENTRICULAR HYPERTROPHY WITH REPOLARIZATION ABNORMALITY ABNORMAL ECG WHEN COMPARED WITH ECG OF 27-JAN-2017 19:04, T WAVE AMPLITUDE HAS DECREASED IN ANTEROLATERAL LEADS Confirmed by MD KOLTON, JULIET ([id number]) on 07/15/2018 1:09:21 PM Referred By: Confirmed By:JULIET HI MD
[2018-07-15 14:49] LABS: URINE HYALINE CAST 68 /lpf; URINE MUCUS RARE
--- NOTE | 2018-07-15 14:49 | PN ---
[facility] Progress Note Note: Labs reviewed, potassium level low Laboratory Last Values WBC 7.9 K/mm3 (4.0-10.0) 07/15/18 05:40 RBC 4.01 M/mm3 (4.00-5.60) 07/15/18 05:40 Hgb 12.6 GM/dL (11.7-16.9) 07/15/18 05:40 Hct 36.3 % (35.4-49) 07/15/18 05:40 MCV 90.4 fl (80-96) 07/15/18 05:40 MCH 31.5 pg (25.7-33.7) 07/15/18 05:40 MCHC 34.8 g/dl (32.0-35.9) 07/15/18 05:40 RDW 16.8 % (11.9-15.9) H 07/15/18 05:40 Plt Count 232 K/MM3 (134-434) 07/15/18 05:40 MPV 8.5 fl (7.5-11.1) 07/15/18 05:40 Sodium 131 mmol/L (136-145) L 07/15/18 05:40 Potassium 3.3 mmol/L (3.5-5.1) L 07/15/18 05:40 Chloride 94 mmol/L (98-107) L 07/15/18 05:40 Carbon Dioxide 25 mmol/L (21-32) 07/15/18 05:40 Anion Gap 12 MMOL/L (8-16) 07/15/18 05:40 BUN 9 mg/dL (7-18) 07/15/18 05:40 Creatinine 0.9 mg/dL (0.55-1.3) 07/15/18 05:40 Creat Clearance w eGFR 84.69 (>60) 07/15/18 05:40 Random Glucose 134 mg/dL (74-106) H 07/15/18 05:40 Calcium 9.6 mg/dL (8.5-10.1) 07/15/18 05:40 Total Bilirubin 0.7 mg/dL (0.2-1) 07/15/18 05:40 AST 49 U/L (15-37) H 07/15/18 05:40 ALT 41 U/L (13-61) 07/15/18 05:40 Alkaline Phosphatase 154 U/L (45-117) H 07/15/18 05:40 Total Protein 8.0 g/dl (6.4-8.2) 07/15/18 05:40 Albumin 4.0 g/dl (3.4-5.0) 07/15/18 05:40 Urine Color Yellow 07/15/18 10:05 Urine Appearance Clear 07/15/18 10:05 Urine pH 7.0 (5.0-8.0) 07/15/18 10:05 Ur Specific [place] 1.017 (1.010-1.035) 07/15/18 10:05 Urine Protein 1+ (NEGATIVE) H 07/15/18 10:05 Urine Glucose (UA) Negative (NEGATIVE) 07/15/18 10:05 Urine Ketones Negative (NEGATIVE) 07/15/18 10:05 Urine Blood Negative (NEGATIVE) 07/15/18 10:05 Urine Nitrite Negative (NEGATIVE) 07/15/18 10:05 Urine Bilirubin Negative (<2.0 mg/dL) 07/15/18 10:05 Urine Urobilinogen 4.0 e.u/dl mg/dL (0.2-1.0) 07/15/18 10:05 Ur Leukocyte Esterase Negative (NEGATIVE) 07/15/18 10:05 RPR Titer Nonreactive (NONREACTIVE) 07/15/18 05:40 Potassium supplement ordered
[2018-07-15] MEDS: POTASSIUM CHLORIDE TABS 20 MEQ TABLET.ER (FP) PO SCH (16:14)
[2018-07-15] MEDS: MELATONIN 5 MG TABLETS PO PRN (22:41)
[2018-07-15] MEDS: THIAMINE HCL 100 MG TABLET (FP) PO SCH (22:41)
[2018-07-16] MEDS: chlordiazePOXIDE HCL 25 MG CAPSULE PO SCH ×3 (06:36→17:09)
[2018-07-16] MEDS: HYDROCHLOROTHIAZIDE 25 MG TABLET (FP) PO SCH (06:37)
[2018-07-16] MEDS: amLODIPine BESYLATE 10 MG TABLET (FP) PO SCH (10:33)
[2018-07-16] MEDS: NICOTINE 21 MG/24 HOURS TOPICAL PATCH TD SCH (10:33)
[2018-07-16] MEDS: POTASSIUM CHLORIDE TABS 20 MEQ TABLET.ER (FP) PO SCH (10:33)
[2018-07-16] MEDS: PRENATAL VITAMINS W/ FOLIC ACID TABLET (FP) PO SCH (10:33)
--- NOTE | 2018-07-16 12:34 | PN ---
[facility] CIWA - CIWA Score Nausea/Vomitin Muscle Tremors: 2 Anxiety: 2 Agitation: 1-Slight > Activity Paroxysmal Sweats: 2 Orientation: 0-Oriented Tacttile Disturbances: 0-None Auditory Disturbances: 0-None Visual Disturbances: 1-Very Mild Sensitivity Headache: 0-None Present CIWA-Ar Total Score: 11 [facility] Progress Note (SOAP) Subjective: nausea, chills, sweats Objective: 07/16/18 12:33 Vital Signs Temperature 98.6 F 07/16/18 09:32 Pulse Rate 91 H 07/16/18 09:32 Respiratory Rate 17 07/16/18 09:32 Blood Pressure 119/91 07/16/18 09:32 O2 Sat by Pulse Oximetry (%) Laboratory Last Values WBC 7.9 K/mm3 (4.0-10.0) 07/15/18 05:40 RBC 4.01 M/mm3 (4.00-5.60) 07/15/18 05:40 Hgb 12.6 GM/dL (11.7-16.9) 07/15/18 05:40 Hct 36.3 % (35.4-49) 07/15/18 05:40 MCV 90.4 fl (80-96) 07/15/18 05:40 MCH 31.5 pg (25.7-33.7) 07/15/18 05:40 MCHC 34.8 g/dl (32.0-35.9) 07/15/18 05:40 RDW 16.8 % (11.9-15.9) H 07/15/18 05:40 Plt Count 232 K/MM3 (134-434) 07/15/18 05:40 MPV 8.5 fl (7.5-11.1) 07/15/18 05:40 Sodium 131 mmol/L (136-145) L 07/15/18 05:40 Potassium 3.3 mmol/L (3.5-5.1) L 07/15/18 05:40 Chloride 94 mmol/L (98-107) L 07/15/18 05:40 Carbon Dioxide 25 mmol/L (21-32) 07/15/18 05:40 Anion Gap 12 MMOL/L (8-16) 07/15/18 05:40 BUN 9 mg/dL (7-18) 07/15/18 05:40 Creatinine 0.9 mg/dL (0.55-1.3) 07/15/18 05:40 Creat Clearance w eGFR 84.69 (>60) 07/15/18 05:40 Random Glucose 134 mg/dL (74-106) H 07/15/18 05:40 Calcium 9.6 mg/dL (8.5-10.1) 07/15/18 05:40 Total Bilirubin 0.7 mg/dL (0.2-1) 07/15/18 05:40 AST 49 U/L (15-37) H 07/15/18 05:40 ALT 41 U/L (13-61) 07/15/18 05:40 Alkaline Phosphatase 154 U/L (45-117) H 07/15/18 05:40 Total Protein 8.0 g/dl (6.4-8.2) 07/15/18 05:40 Albumin 4.0 g/dl (3.4-5.0) 07/15/18 05:40 Urine Color Yellow 07/15/18 10:05 Urine Appearance Clear 07/15/18 10:05 Urine pH 7.0 (5.0-8.0) 07/15/18 10:05 Ur Specific [place] 1.017 (1.010-1.035) 07/15/18 10:05 Urine Protein 1+ (NEGATIVE) H 07/15/18 10:05 Urine Glucose (UA) Negative (NEGATIVE) 07/15/18 10:05 Urine Ketones Negative (NEGATIVE) 07/15/18 10:05 Urine Blood Negative (NEGATIVE) 07/15/18 10:05 Urine Nitrite Negative (NEGATIVE) 07/15/18 10:05 Urine Bilirubin Negative (<2.0 mg/dL) 07/15/18 10:05 Urine Urobilinogen 4.0 e.u/dl mg/dL (0.2-1.0) 07/15/18 10:05 Ur Leukocyte Esterase Negative (NEGATIVE) 07/15/18 10:05 Urine WBC (Auto) None /hpf (3-5) 07/15/18 10:05 Urine RBC (Auto) <1 /hpf (0-3) 07/15/18 10:05 Hyaline Casts 68 /lpf 07/15/18 10:05 Urine Mucus Rare 07/15/18 10:05 RPR Titer Nonreactive (NONREACTIVE) 07/15/18 05:40 on K+ supplement repeat K+ 07/16/18 12:34 Assessment: 07/16/18 12:34 AOx3 no distress, anxious no adventitious breath sounds full ROM ambulating in the unit Plan: hypokelemia withdrawal sx increase po fluids repeat K+ continue detox continue to monitor
[2018-07-16] MEDS: MELATONIN 5 MG TABLETS PO PRN (22:17)
[2018-07-16] MEDS: THIAMINE HCL 100 MG TABLET (FP) PO SCH (22:18)
[2018-07-16] MEDS: chlordiazePOXIDE HCL 10 MG CAPSULE PO SCH (22:18)
[2018-07-16] MEDS ORDERED: chlordiazePOXIDE HCL 10 MG CAPSULE PO PRN (23:00)
[2018-07-17] MEDS: HYDROCHLOROTHIAZIDE 25 MG TABLET (FP) PO SCH (06:35)
[2018-07-17] MEDS: chlordiazePOXIDE HCL 10 MG CAPSULE PO SCH ×3 (06:35→18:24)
[2018-07-17] MEDS: PRENATAL VITAMINS W/ FOLIC ACID TABLET (FP) PO SCH (10:17)
[2018-07-17] MEDS: POTASSIUM CHLORIDE TABS 20 MEQ TABLET.ER (FP) PO SCH (10:17)
[2018-07-17] MEDS: NICOTINE 21 MG/24 HOURS TOPICAL PATCH TD SCH (10:18)
[2018-07-17] MEDS: amLODIPine BESYLATE 10 MG TABLET (FP) PO SCH (13:19)
--- NOTE | 2018-07-17 14:47 | PN ---
[facility] Progress Note (SOAP) Subjective: Patient denies current Withdrawal / Detox symptoms and reports that he feels well overall. Objective: PATIENT A & O X 3, OBSERVED AMBULATING ON UNIT. IN NO ACUTE DISTRESS. 07/17/18 14:45 Vital Signs Temperature 98.1 F 07/17/18 13:25 Pulse Rate 106 H 07/17/18 13:25 Respiratory Rate 18 07/17/18 13:25 Blood Pressure 139/80 07/17/18 13:25 O2 Sat by Pulse Oximetry (%) Laboratory Tests 07/15/18 07/15/18 07/15/18 05:40 05:40 05:40 WBC 7.9 RBC 4.01 Hgb 12.6 Hct 36.3 MCV 90.4 MCH 31.5 MCHC 34.8 RDW 16.8 H Plt Count 232 MPV 8.5 Sodium 131 L Potassium 3.3 L Chloride 94 L Carbon Dioxide 25 Anion Gap 12 BUN 9 Creatinine 0.9 Creat Clearance w eGFR 84.69 Random Glucose 134 H Calcium 9.6 Total Bilirubin 0.7 AST 49 H ALT 41 Alkaline Phosphatase 154 H Total Protein 8.0 Albumin 4.0 Urine Color Urine Appearance Urine pH Ur Specific [place] Urine Protein Urine Glucose (UA) Urine Ketones Urine Blood Urine Nitrite Urine Bilirubin Urine Urobilinogen Ur Leukocyte Esterase Urine WBC (Auto) Urine RBC (Auto) Hyaline Casts Urine Mucus RPR Titer Nonreactive 07/15/18 07/17/18 10:05 07:40 WBC RBC Hgb Hct MCV MCH MCHC RDW Plt Count MPV Sodium Potassium 3.5 Chloride Carbon Dioxide Anion Gap BUN Creatinine Creat Clearance w eGFR Random Glucose Calcium Total Bilirubin AST ALT Alkaline Phosphatase Total Protein Albumin Urine Color Yellow Urine Appearance Clear Urine pH 7.0 Ur Specific [place] 1.017 Urine Protein 1+ H Urine Glucose (UA) Negative Urine Ketones Negative Urine Blood Negative Urine Nitrite Negative Urine Bilirubin Negative Urine Urobilinogen 4.0 e.u/dl Ur Leukocyte Esterase Negative Urine WBC (Auto) None Urine RBC (Auto) <1 Hyaline Casts 68 Urine Mucus Rare RPR Titer LABS NOTED. RESULT OF REPEAT K LEVEL NOTED. K LEVEL NOW NOTED TO BE WITHIN NORMAL RANGE. 07/17/18 14:46 Assessment: 07/17/18 14:46 WITHDRAWAL SYMPTOMS. Plan: CONTINUE DETOX. PATIENT SCHEDULED FOR D/C TOMORROW AM.
--- NOTE | 2018-07-17 16:49 | PN ---
[facility] Progress Note Note: PATIENT CURRENTLY HAS PRESCRIPTIONS WAITING FOR HIM FOR AMLODIPINE, 10 MG PO DAILY AND FOR HCTZ, 25 MG PO DAILY, AT [facility] ([place], [place]), CONFIRMED BY PHARMACIST AT [facility]. PRESCRIPTIONS WERE SENT ON 2018 AT TIME OF PATIENT'S LAST (REHAB) ADMISSION AT [facility]. HOWEVER, PATIENT DID NOT MERCHANDISER AT THAT TIME. PATIENT SCHEDULED FOR D/C TOMORROW. PATIENT ADVISED TO MERCHANDISER MEDICATIONS AT [facility] TOMORROW AFTER DISCHARGE FROM DETOX FOR AFTERCARE AND TO FOLLOW-UP WITH LAUNDRY OR [employer]Y [employer]ERS COUNTER CLERK AT [facility] WHEN POSSIBLE AFTER DISCHARGE FROM DETOX UNIT FOR GENERAL MEDICAL ASSESSMENT AND FOR HISTORY OF HTN. PATIENT VERBALIZED UNDERSTANDING OF RECOMMENDATION. Siddhartha CANNON NP
[2018-07-17] MEDS: THIAMINE HCL 100 MG TABLET (FP) PO SCH (22:29)
[2018-07-17] MEDS ORDERED: chlordiazePOXIDE HCL 10 MG CAPSULE PO SCH (23:00)
[2018-07-18] MEDS: HYDROCHLOROTHIAZIDE 25 MG TABLET (FP) PO SCH (05:38)
--- NOTE | 2018-07-18 08:48 | DS ---
[facility] Detox Discharge Summary Admission Date: 07/14/18 Discharge Date: 07/18/18 - History Present History: Alcohol Dependence - Physical Exam Results Vital Signs: Vital Signs Temperature 97.2 F L 07/18/18 06:40 Pulse Rate 75 07/18/18 06:40 Respiratory Rate 18 07/18/18 06:40 Blood Pressure 145/88 07/18/18 06:40 O2 Sat by Pulse Oximetry (%) - Treatment Hospital Course: Detox Protocol Followed, Detoxed Safely, Responded well, Discharged Condition Good, Rehab Referral Accepted - Medication Discharge Medications: Ambulatory Orders Amlodipine Besylate [Norvasc -] 10 mg PO DAILY #14 tablet 07/07/18 Hydrochlorothiazide [Hctz -] 25 mg PO DAILY@0600 #14 tablet 07/07/18 - Diagnosis (1) Alcohol dependence with uncomplicated withdrawal Current Visit: Yes Status: Chronic (2) Bipolar disorder Current Visit: Yes Status: Chronic Qualifiers: Most recent bipolar episode type: most recent episode unspecified type (3) HTN (hypertension) Current Visit: Yes Status: Chronic Qualifiers: Hypertension type: essential hypertension Qualified Code(s): I10 - Essential (primary) hypertension (4) Nicotine dependence Current Visit: Yes Status: Chronic Qualifiers: Nicotine product type: cigarettes Substance use status: uncomplicated Qualified Code(s): F17.210 - Nicotine dependence, cigarettes, uncomplicated (5) Alcohol-induced sleep disorder Current Visit: No Status: Acute (6) Drug-induced mood disorder Current Visit: No Status: Acute (7) Elevated alkaline phosphatase level Current Visit: No Status: Acute (8) History of appendectomy Current Visit: No Status: Acute (9) Insomnia Current Visit: No Status: Acute (10) Weight loss Current Visit: No Status: Acute - AMA Did Patient Leave Against Medical Advice: No (referred to inpatient rehab; [facility])
[2018-07-18 09:28] VITALS: BP 126/81; PULSE 94; TEMP 97.5
== END 2018-07-18 09:20 | disposition home or self-care (01) | DRG 897 ==
LOC: YASAS 12:48 → Y6N 17:31
PROVIDERS: ADMIT Surgery; ATTEND Surgery
PROC: HZ2ZZZZ Detoxification Services for Substance Abuse Treatment (ICD-10-PCS; principal; 2018-07-14)
DX: F10.230 Alcohol dependence with withdrawal, uncomplicated (principal); F17.210 Nicotine dependence, cigarettes, uncomplicated; F10.282 Alcohol dependence with alcohol-induced sleep disorder; F19.24 Other psychoactive substance dependence with psychoactive substance-induced mood disorder; F32.9 Major depressive disorder, single episode, unspecified; I10 Essential (primary) hypertension; E87.6 Hypokalemia; G47.00 Insomnia, unspecified; R74.8 Abnormal levels of other serum enzymes; R63.4 Abnormal weight loss; Z68.24 Body mass index [BMI] 24.0-24.9, adult
CPT/HCPCS: 36415; 80053; 81003; 81015; 84132; 85027; 86593; 93005; 93010; J0735

== ENCOUNTER 2018-07-22 08:58 | Inpatient (IN) | payer OTHER ==
[2018-07-22 10:10] VITALS: BMI 24.6
--- NOTE | 2018-07-22 10:31 | HP ---
CIWA Score Nausea/Vomitin Muscle Tremors: 3 Anxiety: 2 Agitation: 0-Normal Activity Paroxysmal Sweats: No Perspiration Orientation: 2-Disoriented Date<2 days Tacttile Disturbances: 1-Very Mild Itch/Numbness Auditory Disturbances: 0-None Visual Disturbances: 1-Very Mild Sensitivity Headache: 2-Mild CIWA-Ar Total Score: 13 - Admission Criteria [facility]ASAS Guidelines: Admission for Medically Managed Detox: Requires at least one of the followin. CIWA greater than 12 2. Seizures within the past 24 hours 3. Delirium tremens within the past 24 hours 4. Hallucinations within the past 24 hours 5. Acute intervention needed for co occurring medical disorder 6. Acute intervention needed for co occurring psychiatric disorder 7. Severe withdrawal that cannot be handled at a lower level of care (continued vomiting, continued diarrhea, abnormal vital signs) requiring intravenous medication and/or fluids 8. Patient presents the following: CIWA greater than 12 Admission Criteria Met: Admission criteria met Admission ROS S - HPI Chief Complaint: I want to stop drinking Allergies/Adverse Reactions: Allergies Allergy/AdvReac Type Severity Reaction Status Date / Time kiwi Allergy Severe Rash Verified 07/14/18 14:29 No Known Drug Allergies Allergy Verified 07/14/18 14:29 History of Present Illness: 67 yo gentleman here for detox from alcohol. Patient was just here for detox and left on 07/18/18 - he does not remember this, nor that he was offered rehab. He states after he left he resumed drinking - ("It's like my water for me"). He was brought to [facility] last night for 'intoxication' and given medication (urine tox + bzo). States he has 'alot of black outs' but denies seizures. He states he wants the injection (vivitrol) when he leaves. Exam Limitations: Clinical Condition - Ebola screening Have you traveled outside of the country in the last 21 days: No (N) Have you had contact with anyone from an Ebola affected area: No Have you been sick,other than usual withdrawal symptoms: No Do you have a fever: No - Review of Systems Constitutional: Loss of Appetite, Changes in sleep, Weakness EENT: reports: Blurred Vision Respiratory: reports: No Symptoms reported Cardiac: reports: No Symptoms Reported GI: reports: Poor Appetite, Poor Fluid Intake, Indigestion, Abdominal cramping : reports: Frequency Musculoskeletal: reports: No Symptoms Reported Integumentary: reports: Dryness Neuro: reports: Headache, Tremors Endocrine: reports: No Symptoms Reported Hematology: reports: No Symptoms Reported Psychiatric: reports: Judgement Intact, Mood/Affect Appropiate, Anxious Other Systems: Reviewed and Negative Patient History - Patient Medical History Hx Anemia: No Hx Asthma: No Hx Chronic Obstructive Pulmonary Disease (COPD): No Hx Cancer: No Hx Cardiac Disorders: No Hx Congestive Heart Failure: No Hx Hypertension: Yes Hx Hypercholesterolemia: No Hx Pacemaker: No HX Cerebrovascular Accident: No Hx Seizures: No Hx Dementia: No Hx Diabetes: No Hx Gastrointestinal Disorders: Yes (GERD) Hx Liver Disease: No Hx Genitourinary Disorders: No Hx Sexually Transmitted Disorders: No Hx Renal Disease (ESRD): No Hx Thyroid Disease: No Hx Human Immunodeficiency Virus (HIV): No (last 2017 negative) Hx Hepatitis C: No Hx Depression: No Hx Suicide Attempt: No Hx Bipolar Disorder: Yes (no meds) Hx Schizophrenia: No - Patient Surgical History Past Surgical History: Yes Hx Neurologic Surgery: No Hx Cataract Extraction: No Hx Cardiac Surgery: No Hx Lung Surgery: No Hx Breast Surgery: No Hx Breast Biopsy: No Hx Abdominal Surgery: No Hx Appendectomy: Yes (at age of [age] years old) Hx Cholecystectomy: No Hx Genitourinary Surgery: No Hx Section: No Hx Orthopedic Surgery: Yes (right forearm in 1981) Anesthesia Reaction: No - PPD History Previous Implant?: Yes Documented Results: Negative w/proof Implanted On Prior [facility] Admission?: Yes Date: 04/26/18 Results: 0 mm PPD to be Administered?: No - Reproductive History Patient is a Female of Child Bearing Age (11 -55 yrs old): No (male) - Smoking Cessation Smoking history: Current every day smoker Have you smoked in the past 12 months: Yes Aproximately how many cigarettes per day: 10 Hx Chewing Tobacco Use: No Initiated information on smoking cessation: Yes 'Breaking Loose' booklet given: 07/22/18 (give on floor) - Substance & Tx. History Hx Alcohol Use: Yes Hx Substance Use: No Substance Use Type: Alcohol Hx Substance Use Treatment: Yes (detox, rehab) - Substances Abused alcohol Route: Oral Frequency: Daily Amount used: four 1/2 pints vodka; six 24oz cans beer Age of first use: 6 (stated father gave to him) Date of Last Use: 07/21/18 Family Disease History - Family Disease History Family Disease History: CA: Father (THROAT CA, ALCOHOL,), Mother ( , LEUKEMIA), Other: Father, Brother (two - - drugs), Sister ( five living), Son (one age 42) Admission Physical Exam [facility] - Vital Signs Vital Signs: Vital Signs - 24 hr 07/22/18 09:59 Temperature 97.9 F Pulse Rate 75 Respiratory 20 Rate Blood Pressure 148/86 - Physical General Appearance: Yes: Nourished, Appropriately Dressed, Moderate Distress, Tremorous, Anxious HEENTM: Yes: EOMI, Hearing grossly Normal, Normal ENT Inspection, Normocephalic , Normal Voice Respiratory: Yes: Normal Breath Sounds, No Respiratory Distress Neck: Yes: No masses,lesions,Nodules Breast: Yes: Breast Exam Deferred Cardiology: Yes: Regular Rhythm, Regular Rate Abdominal: Yes: Flat Genitourinary: Yes: Frequency Back: Yes: Normal Inspection Musculoskeletal: Yes: full range of Motion, Gait Steady Extremities: Yes: Other (onychomycosis of all fingernails) Neurological: Yes: Alert, Normal Mood/Affect, Normal Response Integumentary: Yes: Normal Color, Dry, Warm Lymphatic: Yes: Within Normal Limits - Diagnostic (1) Alcohol dependence with uncomplicated withdrawal Current Visit: Yes Status: Chronic (2) HTN (hypertension) Current Visit: Yes Status: Chronic Qualifiers: Hypertension type: essential hypertension Qualified Code(s): I10 - Essential (primary) hypertension (3) Nicotine dependence Current Visit: Yes Status: Chronic Qualifiers: Nicotine product type: cigarettes Substance use status: uncomplicated Qualified Code(s): F17.210 - Nicotine dependence, cigarettes, uncomplicated (4) Onychomycosis Current Visit: Yes Status: Chronic Cleared for Admission [facility] - Detox or Rehab [facility] Level of Care: Medically Managed Detox Regimen/Protocol: Librium S Breath Alcohol Content Breath Alcohol Content: 0 Urine Drug Screen - Results Drug Screen Negative: No Urine Drug Screen Results: BZO-Benzodiazepines Inpatient Rehab Admission - Rehab Decision to Admit Inpatient rehab admission?: No
[2018-07-22] MEDS ORDERED: hydrOXYzine PAMOATE 25 MG CAPSULE (FP) PO PRN (12:49)
[2018-07-22] MEDS ORDERED: MAGNESIUM HYDROX 2400MG/30ML ORAL SUSPENSION 30 ML CUP PO PRN (12:49)
[2018-07-22] MEDS ORDERED: METHOCARBAMOL 500 MG TABLET PO PRN (12:49)
[2018-07-22] MEDS ORDERED: MAG HYDROX/AL HYDROX/SIMETH 30 ML UNIT-DOSE CUP PO PRN (12:49)
[2018-07-22] MEDS ORDERED: IBUPROFEN 400 MG TABLET (FP) PO PRN (12:49)
[2018-07-22] MEDS ORDERED: chlordiazePOXIDE HCL 25 MG CAPSULE PO PRN (12:49)
[2018-07-22] MEDS ORDERED: MAGNESIUM CITRATE 300 ML BOTTLE PO PRN (12:49)
[2018-07-22] MEDS ORDERED: ACETAMINOPHEN 325 MG TABLET (FP) PO PRN (12:49)
[2018-07-22] MEDS ORDERED: MENTHOL/PHENOL 1 EACH UD MM PRN (12:49)
[2018-07-22] MEDS: NICOTINE 14 MG/24 HOURS TOPICAL PATCH TD SCH (13:04)
[2018-07-22] MEDS: chlordiazePOXIDE HCL 25 MG CAPSULE PO SCH ×2 (17:34→22:18)
[2018-07-22] MEDS: MELATONIN 5 MG TABLETS PO PRN (22:18)
[2018-07-22] MEDS: THIAMINE HCL 100 MG TABLET (FP) PO SCH (22:18)
[2018-07-23] MEDS: chlordiazePOXIDE HCL 25 MG CAPSULE PO SCH ×4 (05:44→22:27)
[2018-07-23] MEDS: NICOTINE 14 MG/24 HOURS TOPICAL PATCH TD SCH (10:08)
[2018-07-23] MEDS: PRENATAL VITAMINS W/ FOLIC ACID TABLET (FP) PO SCH (10:08)
[2018-07-23] MEDS: amLODIPine BESYLATE 10 MG TABLET (FP) PO SCH (10:08)
[2018-07-23] MEDS: HYDROCHLOROTHIAZIDE 25 MG TABLET (FP) PO SCH (10:08)
[2018-07-23 10:57] LABS: ALBUMIN 3.8 g/dl (3.4-5.0); ALK PHOS 133 U/L (45-117); ANION GAP 8 MMOL/L (8-16); BILIRUBIN,TOTAL 0.5 mg/dL (0.2-1); BLOOD UREA NITROGEN 13 mg/dL (7-18); CALCIUM 9.5 mg/dL (8.5-10.1); CHLORIDE 100 mmol/L (98-107); CO2 29 mmol/L (21-32); GLUCOSE,RANDOM 106 mg/dL (74-106); POTASSIUM 3.6 mmol/L (3.5-5.1); SGOT/AST 26 U/L (15-37); SGPT/ALT 38 U/L (13-61); SODIUM 136 mmol/L (136-145); TOT PROT 8.3 g/dl (6.4-8.2)
[2018-07-23 11:06] LABS: HEMATOCRIT 36.2 % (35.4-49); HEMOGLOBIN 12.3 GM/dL (11.7-16.9); MCH 31.4 pg (25.7-33.7); MEAN CELL VOLUME 92.4 fl (80-96); PLATELET COUNT 284 K/MM3 (134-434); RBC 3.92 M/mm3 (4.00-5.60); RDW 16.3 % (11.9-15.9)
--- NOTE | 2018-07-23 14:45 | PN ---
S CIWA - CIWA Score Nausea/Vomitin Muscle Tremors: 4-Moderate,w/Arms Extend Anxiety: 4-Mod. Anxious/Guarded Agitation: 4-Moderately Restless Paroxysmal Sweats: 3 Orientation: 0-Oriented Tacttile Disturbances: 0-None Auditory Disturbances: 0-None Visual Disturbances: 0-None Headache: 0-None Present CIWA-Ar Total Score: 17 [facility] Progress Note (SOAP) Subjective: Denies any complaints. Patient is anxious Objective: 07/23/18 14:43 Last Vital Signs Temp Pulse Resp BP Pulse Ox 98.2 F 78 18 148/82 07/23/18 13:08 07/23/18 13:08 07/23/18 13:08 07/23/18 13:08 b/p noted (has htn, on med) Laboratory Tests 07/23/18 07/23/18 07/23/18 07:20 07:20 07:20 WBC 5.0 RBC 3.92 L Hgb 12.3 Hct 36.2 MCV 92.4 MCH 31.4 MCHC 34.0 RDW 16.3 H Plt Count 284 D MPV 8.0 Sodium 136 Potassium 3.6 Chloride 100 Carbon Dioxide 29 Anion Gap 8 BUN 13 Creatinine 1.0 Creat Clearance w eGFR 74.99 Random Glucose 106 Calcium 9.5 Total Bilirubin 0.5 AST 26 ALT 38 Alkaline Phosphatase 133 H Total Protein 8.3 H Albumin 3.8 RPR Titer Nonreactive Labs reviewed Assessment: 07/23/18 14:44 Withdrawal symptoms Plan: Continue detox Encouraged PO water hydration
[2018-07-23] MEDS: THIAMINE HCL 100 MG TABLET (FP) PO SCH (22:27)
[2018-07-23] MEDS: MELATONIN 5 MG TABLETS PO PRN (22:28)
[2018-07-24] MEDS: chlordiazePOXIDE HCL 25 MG CAPSULE PO SCH ×2 (05:12→10:07)
[2018-07-24] MEDS: HYDROCHLOROTHIAZIDE 25 MG TABLET (FP) PO SCH (05:12)
[2018-07-24] MEDS: PRENATAL VITAMINS W/ FOLIC ACID TABLET (FP) PO SCH (10:07)
[2018-07-24] MEDS: NICOTINE 14 MG/24 HOURS TOPICAL PATCH TD SCH (10:07)
[2018-07-24] MEDS: amLODIPine BESYLATE 10 MG TABLET (FP) PO SCH (10:07)
[2018-07-24] MEDS ORDERED: chlordiazePOXIDE HCL 10 MG CAPSULE PO PRN (17:00)
[2018-07-24] MEDS: chlordiazePOXIDE HCL 10 MG CAPSULE PO SCH ×2 (18:23→22:20)
--- NOTE | 2018-07-24 19:37 | PN ---
S CIWA - CIWA Score Nausea/Vomitin-No Nausea/No Vomiting Muscle Tremors: 2 Anxiety: 3 Agitation: 0-Normal Activity Paroxysmal Sweats: 3 Orientation: 2-Disoriented Date<2 days Tacttile Disturbances: 2-Mild Itch/Numbness/Burn Auditory Disturbances: 0-None Visual Disturbances: 2-Mild Sensitivity Headache: 0-None Present CIWA-Ar Total Score: 14 [facility] Progress Note (SOAP) Subjective: Sweating, Tremors, Anxious. Objective: PATIENT A & O X 2 (UNCERTAIN ABOUT CURRENT DAY / DATE). PATIENT OBSERVED AMBULATING ON UNIT. IN NO ACUTE DISTRESS. 07/24/18 19:36 Vital Signs Temperature 98.1 F 07/24/18 17:39 Pulse Rate 82 07/24/18 17:39 Respiratory Rate 18 07/24/18 17:39 Blood Pressure 124/84 07/24/18 17:39 O2 Sat by Pulse Oximetry (%) Laboratory Tests 07/23/18 07/23/18 07/23/18 07:20 07:20 07:20 WBC 5.0 RBC 3.92 L Hgb 12.3 Hct 36.2 MCV 92.4 MCH 31.4 MCHC 34.0 RDW 16.3 H Plt Count 284 D MPV 8.0 Sodium 136 Potassium 3.6 Chloride 100 Carbon Dioxide 29 Anion Gap 8 BUN 13 Creatinine 1.0 Creat Clearance w eGFR 74.99 Random Glucose 106 Calcium 9.5 Total Bilirubin 0.5 AST 26 ALT 38 Alkaline Phosphatase 133 H Total Protein 8.3 H Albumin 3.8 RPR Titer Nonreactive LABS NOTED. Assessment: 07/24/18 19:37 WITHDRAWAL SYMPTOMS. Plan: CONTINUE DETOX.
[2018-07-24] MEDS: THIAMINE HCL 100 MG TABLET (FP) PO SCH (22:20)
[2018-07-25] MEDS: HYDROCHLOROTHIAZIDE 25 MG TABLET (FP) PO SCH (05:36)
[2018-07-25] MEDS: chlordiazePOXIDE HCL 10 MG CAPSULE PO SCH ×3 (05:36→17:44)
--- NOTE | 2018-07-25 10:11 | PN ---
[facility] Progress Note (SOAP) Subjective: sweats Objective: 07/25/18 10:10 Vital Signs Temperature 97.9 F 07/25/18 09:25 Pulse Rate 94 H 07/25/18 09:25 Respiratory Rate 18 07/25/18 09:25 Blood Pressure 114/79 07/25/18 09:25 O2 Sat by Pulse Oximetry (%) aaox3 ambulating no acute distress Assessment: 07/25/18 10:11 mild withdrawal sx Plan: continue detox d/c in am
[2018-07-25] MEDS: amLODIPine BESYLATE 10 MG TABLET (FP) PO SCH (10:19)
[2018-07-25] MEDS: PRENATAL VITAMINS W/ FOLIC ACID TABLET (FP) PO SCH (10:19)
[2018-07-25] MEDS: NICOTINE 14 MG/24 HOURS TOPICAL PATCH TD SCH (10:19)
[2018-07-25] MEDS: MELATONIN 5 MG TABLETS PO PRN (22:37)
[2018-07-25] MEDS: THIAMINE HCL 100 MG TABLET (FP) PO SCH (22:37)
[2018-07-26] MEDS: chlordiazePOXIDE HCL 10 MG CAPSULE PO SCH (05:32)
[2018-07-26] MEDS: HYDROCHLOROTHIAZIDE 25 MG TABLET (FP) PO SCH (05:32)
--- NOTE | 2018-07-26 09:06 | DS ---
[facility] Detox Discharge Summary Admission Date: 07/22/18 Discharge Date: 07/26/18 - History Present History: Alcohol Dependence - Physical Exam Results Vital Signs: Vital Signs Temperature 97.5 F L 07/26/18 07:19 Pulse Rate 66 07/26/18 07:19 Respiratory Rate 18 07/26/18 07:19 Blood Pressure 142/84 07/26/18 07:19 O2 Sat by Pulse Oximetry (%) - Treatment Hospital Course: Detox Protocol Followed, Detoxed Safely, Responded well, Discharged Condition Good, Rehab Referral Accepted - Medication Discharge Medications: Ambulatory Orders Amlodipine Besylate [Norvasc -] 10 mg PO DAILY #14 tablet 07/07/18 Hydrochlorothiazide [Hctz -] 25 mg PO DAILY@0600 #14 tablet 07/07/18 - Diagnosis (1) Alcohol dependence with uncomplicated withdrawal Current Visit: Yes Status: Chronic (2) HTN (hypertension) Current Visit: Yes Status: Chronic Qualifiers: Hypertension type: essential hypertension Qualified Code(s): I10 - Essential (primary) hypertension (3) Nicotine dependence Current Visit: Yes Status: Chronic Qualifiers: Nicotine product type: cigarettes Substance use status: uncomplicated Qualified Code(s): F17.210 - Nicotine dependence, cigarettes, uncomplicated (4) Onychomycosis Current Visit: Yes Status: Chronic (5) Alcohol-induced sleep disorder Current Visit: No Status: Acute (6) Drug-induced mood disorder Current Visit: No Status: Acute (7) Elevated alkaline phosphatase level Current Visit: No Status: Acute (8) History of appendectomy Current Visit: No Status: Acute (9) Insomnia Current Visit: No Status: Acute (10) Bipolar disorder Current Visit: No Status: Chronic Qualifiers: Most recent bipolar episode type: most recent episode unspecified type - AMA Did Patient Leave Against Medical Advice: No (referred to inpatient rehab)
[2018-07-26 09:51] VITALS: BP 130/74; PULSE 81; TEMP 97.7
== END 2018-07-26 09:44 | disposition home or self-care (01) | DRG 897 ==
LOC: YASAS 08:58 → Y6N 12:20
PROVIDERS: ADMIT Surgery; ATTEND Surgery
PROC: HZ2ZZZZ Detoxification Services for Substance Abuse Treatment (ICD-10-PCS; principal; 2018-07-22)
DX: F10.230 Alcohol dependence with withdrawal, uncomplicated (principal); F10.282 Alcohol dependence with alcohol-induced sleep disorder; F17.210 Nicotine dependence, cigarettes, uncomplicated; F19.24 Other psychoactive substance dependence with psychoactive substance-induced mood disorder; F31.9 Bipolar disorder, unspecified; I10 Essential (primary) hypertension; B35.1 Tinea unguium; R74.8 Abnormal levels of other serum enzymes; G47.00 Insomnia, unspecified; K21.9 Gastro-esophageal reflux disease without esophagitis
CPT/HCPCS: 36415; 80053; 85027; 86593

== ENCOUNTER 2018-08-17 08:14 | Inpatient (IN) | payer BC, OTHER ==
[2018-08-17 08:41] VITALS: BMI 23.8
--- NOTE | 2018-08-17 09:00 | HP ---
CIWA Score Nausea/Vomitin Muscle Tremors: 2 Anxiety: 2 Agitation: 2 Paroxysmal Sweats: 1-Minimal Palms Moist Orientation: 0-Oriented Tacttile Disturbances: 1-Very Mild Itch/Numbness Auditory Disturbances: 1-Very Mild Visual Disturbances: 0-None Headache: 2-Mild CIWA-Ar Total Score: 13 - Admission Criteria OASAS Guidelines: Admission for Medically Managed Detox: Requires at least one of the followin. CIWA greater than 12 2. Seizures within the past 24 hours 3. Delirium tremens within the past 24 hours 4. Hallucinations within the past 24 hours 5. Acute intervention needed for co occurring medical disorder 6. Acute intervention needed for co occurring psychiatric disorder 7. Severe withdrawal that cannot be handled at a lower level of care (continued vomiting, continued diarrhea, abnormal vital signs) requiring intravenous medication and/or fluids 8. Admission ROS BHS - HPI Chief Complaint: i need help to stop drinking alcohol Allergies/Adverse Reactions: Allergies Allergy/AdvReac Type Severity Reaction Status Date / Time kiwi Allergy Severe Rash Verified 08/17/18 08:37 No Known Drug Allergies Allergy Verified 08/17/18 08:37 History of Present Illness: this 67 years old male with alcohol dependence,withdrawal symptom,seeking detox, syncope alcohol related last detox 07/22/18 to 07/26/18 [facility] multiple admissions in detox but keep relapsing history of hypertension nicotine dependence ,do not want nicotine replacement longest sobriety 1 year Exam Limitations: No Limitations - Ebola screening Have you traveled outside of the country in the last 21 days: No Have you had contact with anyone from an Ebola affected area: No Do you have a fever: No - Review of Systems Constitutional: Loss of Appetite, Malaise, Night Sweats, Changes in sleep, Unintentional Wgt. Loss EENT: reports: Nose Congestion Respiratory: reports: No Symptoms reported Cardiac: reports: No Symptoms Reported GI: reports: Diarrhea, Nausea, Poor Appetite : reports: No Symptoms Reported Musculoskeletal: reports: Back Pain, Muscle Pain Integumentary: reports: Dryness Neuro: reports: Headache, Tremors Endocrine: reports: No Symptoms Reported Hematology: reports: No Symptoms Reported Psychiatric: reports: No Sypmtoms Reported, Judgement Intact, Mood/Affect Appropiate, Orientated x3 Other Systems: Reviewed and Negative Patient History - Patient Medical History Hx Anemia: No Hx Asthma: No Hx Chronic Obstructive Pulmonary Disease (COPD): No Hx Cancer: No Hx Cardiac Disorders: No Hx Congestive Heart Failure: No Hx Hypertension: Yes (on med) Hx Hypercholesterolemia: No Hx Pacemaker: No HX Cerebrovascular Accident: No Hx Seizures: No Hx Dementia: No Hx Diabetes: No Hx Gastrointestinal Disorders: Yes (GERD) Hx Liver Disease: No Hx Genitourinary Disorders: No Hx Sexually Transmitted Disorders: No Hx Renal Disease (ESRD): No Hx Thyroid Disease: No Hx Human Immunodeficiency Virus (HIV): No (last 2017 negative) Hx Hepatitis C: No Hx Depression: No Hx Suicide Attempt: No Hx Bipolar Disorder: Yes (no meds) Hx Schizophrenia: No Other Medical History: no sucidal,no homicidal - Patient Surgical History Past Surgical History: Yes Hx Neurologic Surgery: No Hx Cataract Extraction: No Hx Cardiac Surgery: No Hx Lung Surgery: No Hx Breast Surgery: No Hx Breast Biopsy: No Hx Abdominal Surgery: No Hx Appendectomy: Yes (at age of [age] years old) Hx Cholecystectomy: No Hx Genitourinary Surgery: No Hx Section: No Hx Orthopedic Surgery: Yes (right forearm in 1981) Anesthesia Reaction: No - PPD History Previous Implant?: Yes Documented Results: Negative w/proof Implanted On Prior R Admission?: Yes Date: 04/26/18 Results: 0 mm PPD to be Administered?: No - Smoking Cessation Smoking history: Current every day smoker Have you smoked in the past 12 months: Yes Aproximately how many cigarettes per day: 5 Hx Chewing Tobacco Use: No Initiated information on smoking cessation: Yes 'Breaking Loose' booklet given: 08/17/18 - Substance & Tx. History Hx Alcohol Use: Yes Hx Substance Use: No Substance Use Type: Alcohol Hx Substance Use Treatment: Yes ([facility] 07/22/18 to 07/26/18) - Substances abused Alcohol Substance route: Oral Frequency: Daily Amount used: 2 .5 pt. vodka, 6 beers (24 oz cans ) Age of first use: 11 Date of last use: 08/17/18 Family Disease History - Family Disease History Family Disease History: CA: Father (THROAT CA, ALCOHOL,), Mother ( , LEUKEMIA), Other: Father, Brother (two - - drugs), Sister ( five living), Son (one age 42) Admission Physical Exam BHS - Vital Signs Vital Signs: Vital Signs - 24 hr 08/17/18 08:38 Temperature 98.4 F Pulse Rate 83 Respiratory 18 Rate Blood Pressure 143/78 - Physical General Appearance: Yes: Moderate Distress, Tremorous, Irritable, Sweating, Anxious HEENTM: Yes: Normal ENT Inspection, MENA, Pharynx Normal Respiratory: Yes: Lungs Clear, Normal Breath Sounds, No Respiratory Distress Neck: Yes: Within Normal Limits Breast: Yes: Within Normal Limits Cardiology: Yes: Within Normal Limits, Regular Rhythm, Regular Rate, S1, S2 Abdominal: Yes: Within Normal Limits, Normal Bowel Sounds, Non Tender, Flat, Surgical Scar (s/p appendectomy) Genitourinary: Yes: Within Normal Limits Back: Yes: Muscle Spasm Musculoskeletal: Yes: full range of Motion, Back pain, Muscle Pain Extremities: Yes: Tremors, Other (scar in right forearm excoriation of skin both hands) Neurological: Yes: surg nurse II-XII NML intact, Fully Oriented, Alert, Motor Strength 5/5 Integumentary: Yes: Dry Lymphatic: Yes: Within Normal Limits - Diagnostic (1) Alcohol dependence with uncomplicated withdrawal Status: Acute (2) History of appendectomy Status: Chronic (3) Insomnia Status: Acute Qualifiers: Insomnia type: unspecified Qualified Code(s): G47.00 - Insomnia, unspecified (4) Bipolar disorder Status: Chronic Qualifiers: Active/Remission status: remission status unspecified Qualified Code(s): F31.9 - Bipolar disorder, unspecified Comment: Noncompliant with treatment. (5) HTN (hypertension) Status: Chronic Qualifiers: Hypertension type: essential hypertension Qualified Code(s): I10 - Essential (primary) hypertension (6) Nicotine dependence Status: Chronic Qualifiers: Nicotine product type: cigarettes Substance use status: uncomplicated Qualified Code(s): F17.210 - Nicotine dependence, cigarettes, uncomplicated (7) Syncope Status: Acute Qualifiers: Syncope type: unspecified Qualified Code(s): R55 - Syncope and collapse (8) Tinea Status: Acute Cleared for Admission S - Detox or Rehab [facility] Level of Care: Medically Managed Detox Regimen/Protocol: Librium Inpatient Rehab Admission - Rehab Decision to Admit Inpatient rehab admission?: No
[2018-08-17] MEDS ORDERED: IBUPROFEN 400 MG TABLET (FP) PO PRN (09:15)
[2018-08-17] MEDS ORDERED: hydrOXYzine PAMOATE 25 MG CAPSULE (FP) PO PRN (09:15)
[2018-08-17] MEDS ORDERED: MAG HYDROX/AL HYDROX/SIMETH 30 ML UNIT-DOSE CUP PO PRN (09:15)
[2018-08-17] MEDS ORDERED: MENTHOL/PHENOL 1 EACH UD MM PRN (09:15)
[2018-08-17] MEDS ORDERED: MAGNESIUM HYDROX 2400MG/30ML ORAL SUSPENSION 30 ML CUP PO PRN (09:15)
[2018-08-17] MEDS ORDERED: BISMUTH SUBSALICYLATE 262 MG/15 ML BTL PO PRN (09:15)
[2018-08-17] MEDS ORDERED: MAGNESIUM CITRATE 300 ML BOTTLE PO PRN (09:15)
[2018-08-17] MEDS ORDERED: METHOCARBAMOL 500 MG TABLET PO PRN (09:15)
[2018-08-17] MEDS ORDERED: chlordiazePOXIDE HCL 25 MG CAPSULE PO PRN (09:15)
[2018-08-17] MEDS ORDERED: ACETAMINOPHEN 325 MG TABLET (FP) PO PRN ×2 (09:15)
[2018-08-17] MEDS: PRENATAL VITAMINS W/ FOLIC ACID TABLET (FP) PO SCH (10:16)
[2018-08-17] MEDS: chlordiazePOXIDE HCL 25 MG CAPSULE PO SCH ×3 (10:16→22:56)
[2018-08-17] MEDS: amLODIPine BESYLATE 10 MG TABLET (FP) PO SCH (10:16)
[2018-08-17 14:38] LABS: HEMATOCRIT 33.5 % (35.4-49); HEMOGLOBIN 11.3 GM/dL (11.7-16.9); MCH 32.4 pg (25.7-33.7); MCHC 33.6 g/dl (32.0-35.9); MEAN CELL VOLUME 96.3 fl (80-96); PLATELET COUNT 191 K/MM3 (134-434); RBC 3.47 M/mm3 (4.00-5.60); RDW 18.2 % (11.9-15.9); WHITE BLOOD COUNT 4.6 K/mm3 (4.0-10.0)
[2018-08-17 14:53] LABS: ALBUMIN 3.9 g/dl (3.4-5.0); ALK PHOS 116 U/L (45-117); ANION GAP 9 MMOL/L (8-16); BILIRUBIN,TOTAL 0.4 mg/dL (0.2-1); BLOOD UREA NITROGEN 19 mg/dL (7-18); CALCIUM 8.8 mg/dL (8.5-10.1); CHLORIDE 105 mmol/L (98-107); CO2 26 mmol/L (21-32); GLUCOSE,RANDOM 92 mg/dL (74-106); POTASSIUM 3.6 mmol/L (3.5-5.1); SGOT/AST 37 U/L (15-37); SGPT/ALT 30 U/L (13-61); SODIUM 140 mmol/L (136-145); TOT PROT 7.4 g/dl (6.4-8.2)
[2018-08-17 17:19] LABS: EPI CELLS 0.8 /HPF (0-5/HPF); URINE APPEARANCE CLEAR; URINE BACTERIA 4.9 /hpf (NEGATIVE); URINE BILIRUBIN NEGATIVE (NEGATIVE); URINE CASTS 12 /lpf (0-8); URINE COLOR DK YELLOW; URINE GLUCOSE (UA) NEGATIVE (NEGATIVE); URINE KETONE TRACE (NEGATIVE); URINE LEUK ESTERASE NEGATIVE (NEGATIVE); URINE NITRITE NEGATIVE (NEGATIVE); URINE PROTEIN 1+ (NEGATIVE); URINE RBC 2 /hpf (0-4); URINE WBC 1 /hpf (0-5)
[2018-08-17] MEDS: MELATONIN 5 MG TABLETS PO PRN (22:17)
[2018-08-17] MEDS: THIAMINE HCL 100 MG TABLET (FP) PO SCH (22:17)
[2018-08-18] MEDS: chlordiazePOXIDE HCL 25 MG CAPSULE PO SCH ×4 (06:09→22:34)
[2018-08-18] MEDS: HYDROCHLOROTHIAZIDE 25 MG TABLET (FP) PO SCH (06:09)
[2018-08-18] MEDS: PRENATAL VITAMINS W/ FOLIC ACID TABLET (FP) PO SCH (10:12)
[2018-08-18] MEDS: amLODIPine BESYLATE 10 MG TABLET (FP) PO SCH (10:12)
--- NOTE | 2018-08-18 14:24 | PN ---
[facility] CIWA - CIWA Score Nausea/Vomitin-No Nausea/No Vomiting Muscle Tremors: 2 Anxiety: 3 Agitation: 0-Normal Activity Paroxysmal Sweats: 2 Orientation: 0-Oriented Tacttile Disturbances: 1-Very Mild Itch/Numbness Auditory Disturbances: 0-None Visual Disturbances: 0-None Headache: 0-None Present CIWA-Ar Total Score: 8 S Progress Note (SOAP) Subjective: interrupted sleep, anxious Objective: 08/18/18 14:23 Vital Signs Temperature 96.1 F L 08/18/18 11:20 Pulse Rate 72 08/18/18 11:20 Respiratory Rate 18 08/18/18 11:20 Blood Pressure 146/82 08/18/18 11:20 O2 Sat by Pulse Oximetry (%) Laboratory Last Values WBC 4.6 K/mm3 (4.0-10.0) 08/17/18 09:25 RBC 3.47 M/mm3 (4.00-5.60) L 08/17/18 09:25 Hgb 11.3 GM/dL (11.7-16.9) L 08/17/18 09:25 Hct 33.5 % (35.4-49) L 08/17/18 09:25 MCV 96.3 fl (80-96) H 08/17/18 09:25 MCH 32.4 pg (25.7-33.7) 08/17/18 09:25 MCHC 33.6 g/dl (32.0-35.9) 08/17/18 09:25 RDW 18.2 % (11.9-15.9) H 08/17/18 09:25 Plt Count 191 K/MM3 (134-434) D 08/17/18 09:25 MPV 8.0 fl (7.5-11.1) 08/17/18 09:25 Sodium 140 mmol/L (136-145) 08/17/18 09:25 Potassium 3.6 mmol/L (3.5-5.1) 08/17/18 09:25 Chloride 105 mmol/L (98-107) 08/17/18 09:25 Carbon Dioxide 26 mmol/L (21-32) 08/17/18 09:25 Anion Gap 9 MMOL/L (8-16) 08/17/18 09:25 BUN 19 mg/dL (7-18) H 08/17/18 09:25 Creatinine 1.0 mg/dL (0.55-1.3) 08/17/18 09:25 Creat Clearance w eGFR 74.99 (>60) 08/17/18 09:25 Random Glucose 92 mg/dL (74-106) 08/17/18 09:25 Calcium 8.8 mg/dL (8.5-10.1) 08/17/18 09:25 Total Bilirubin 0.4 mg/dL (0.2-1) 08/17/18 09:25 AST 37 U/L (15-37) 08/17/18 09:25 ALT 30 U/L (13-61) 08/17/18 09:25 Alkaline Phosphatase 116 U/L (45-117) 08/17/18 09:25 Total Protein 7.4 g/dl (6.4-8.2) 08/17/18 09:25 Albumin 3.9 g/dl (3.4-5.0) 08/17/18 09:25 Urine Color Dk yellow 08/17/18 12:29 Urine Appearance Clear 08/17/18 12:29 Urine pH 5.0 (5.0-8.0) D 08/17/18 12:29 Ur Specific [place] 1.028 (1.010-1.035) 08/17/18 12:29 Urine Protein 1+ (NEGATIVE) H 08/17/18 12:29 Urine Glucose (UA) Negative (NEGATIVE) 08/17/18 12:29 Urine Ketones Trace (NEGATIVE) H 08/17/18 12:29 Urine Blood Negative (NEGATIVE) 08/17/18 12:29 Urine Nitrite Negative (NEGATIVE) 08/17/18 12:29 Urine Bilirubin Negative (NEGATIVE) 08/17/18 12:29 Urine Urobilinogen 1.0 mg/dL (0.2-1.0) 08/17/18 12:29 Ur Leukocyte Esterase Negative (NEGATIVE) 08/17/18 12:29 Urine WBC (Auto) 1 /hpf (0-5) 08/17/18 12:29 Urine RBC (Auto) 2 /hpf (0-4) 08/17/18 12:29 Urine Casts (Auto) 12 /lpf (0-8) 08/17/18 12:29 U Epithel Cells (Auto) 0.8 /HPF (0-5/HPF) 08/17/18 12:29 Urine Bacteria (Auto) 4.9 /hpf (NEGATIVE) 08/17/18 12:29 RPR Titer Nonreactive (NONREACTIVE) 08/17/18 09:25 labs reviewed Aox3 full ROM , ambulating in the unit Assessment: 08/18/18 14:24 withdrawl sx Plan: increase po fluids continue to monitor
[2018-08-18] MEDS: MELATONIN 5 MG TABLETS PO PRN (22:34)
[2018-08-18] MEDS: THIAMINE HCL 100 MG TABLET (FP) PO SCH (22:34)
[2018-08-19] MEDS: chlordiazePOXIDE HCL 25 MG CAPSULE PO SCH (05:52)
[2018-08-19] MEDS: HYDROCHLOROTHIAZIDE 25 MG TABLET (FP) PO SCH (05:52)
[2018-08-19] MEDS: amLODIPine BESYLATE 10 MG TABLET (FP) PO SCH (10:37)
[2018-08-19] MEDS: PRENATAL VITAMINS W/ FOLIC ACID TABLET (FP) PO SCH (10:37)
[2018-08-19] MEDS: chlordiazePOXIDE HCL 10 MG CAPSULE PO SCH ×3 (10:37→23:07)
[2018-08-19] MEDS ORDERED: chlordiazePOXIDE HCL 10 MG CAPSULE PO PRN (11:00)
--- NOTE | 2018-08-19 16:32 | PN ---
S CIWA - CIWA Score Nausea/Vomitin-No Nausea/No Vomiting Muscle Tremors: None Anxiety: 1-Mildly Anxious Agitation: 0-Normal Activity Paroxysmal Sweats: 1-Minimal Palms Moist Orientation: 0-Oriented Tacttile Disturbances: 0-None Auditory Disturbances: 0-None Visual Disturbances: 0-None Headache: 2-Mild CIWA-Ar Total Score: 4 BHS Progress Note (SOAP) Subjective: sweats headache Objective: 08/19/18 16:29 Laboratory Last Values WBC 4.6 K/mm3 (4.0-10.0) 08/17/18 09:25 RBC 3.47 M/mm3 (4.00-5.60) L 08/17/18 09:25 Hgb 11.3 GM/dL (11.7-16.9) L 08/17/18 09:25 Hct 33.5 % (35.4-49) L 08/17/18 09:25 MCV 96.3 fl (80-96) H 08/17/18 09:25 MCH 32.4 pg (25.7-33.7) 08/17/18 09:25 MCHC 33.6 g/dl (32.0-35.9) 08/17/18 09:25 RDW 18.2 % (11.9-15.9) H 08/17/18 09:25 Plt Count 191 K/MM3 (134-434) D 08/17/18 09:25 MPV 8.0 fl (7.5-11.1) 08/17/18 09:25 Sodium 140 mmol/L (136-145) 08/17/18 09:25 Potassium 3.6 mmol/L (3.5-5.1) 08/17/18 09:25 Chloride 105 mmol/L (98-107) 08/17/18 09:25 Carbon Dioxide 26 mmol/L (21-32) 08/17/18 09:25 Anion Gap 9 MMOL/L (8-16) 08/17/18 09:25 BUN 19 mg/dL (7-18) H 08/17/18 09:25 Creatinine 1.0 mg/dL (0.55-1.3) 08/17/18 09:25 Creat Clearance w eGFR 74.99 (>60) 08/17/18 09:25 Random Glucose 92 mg/dL (74-106) 08/17/18 09:25 Calcium 8.8 mg/dL (8.5-10.1) 08/17/18 09:25 Total Bilirubin 0.4 mg/dL (0.2-1) 08/17/18 09:25 AST 37 U/L (15-37) 08/17/18 09:25 ALT 30 U/L (13-61) 08/17/18 09:25 Alkaline Phosphatase 116 U/L (45-117) 08/17/18 09:25 Total Protein 7.4 g/dl (6.4-8.2) 08/17/18 09:25 Albumin 3.9 g/dl (3.4-5.0) 08/17/18 09:25 Urine Color Dk yellow 08/17/18 12:29 Urine Appearance Clear 08/17/18 12:29 Urine pH 5.0 (5.0-8.0) D 08/17/18 12:29 Ur Specific [place] 1.028 (1.010-1.035) 08/17/18 12:29 Urine Protein 1+ (NEGATIVE) H 08/17/18 12:29 Urine Glucose (UA) Negative (NEGATIVE) 08/17/18 12:29 Urine Ketones Trace (NEGATIVE) H 08/17/18 12:29 Urine Blood Negative (NEGATIVE) 08/17/18 12:29 Urine Nitrite Negative (NEGATIVE) 08/17/18 12:29 Urine Bilirubin Negative (NEGATIVE) 08/17/18 12:29 Urine Urobilinogen 1.0 mg/dL (0.2-1.0) 08/17/18 12:29 Ur Leukocyte Esterase Negative (NEGATIVE) 08/17/18 12:29 Urine WBC (Auto) 1 /hpf (0-5) 08/17/18 12:29 Urine RBC (Auto) 2 /hpf (0-4) 08/17/18 12:29 Urine Casts (Auto) 12 /lpf (0-8) 08/17/18 12:29 U Epithel Cells (Auto) 0.8 /HPF (0-5/HPF) 08/17/18 12:29 Urine Bacteria (Auto) 4.9 /hpf (NEGATIVE) 08/17/18 12:29 RPR Titer Nonreactive (NONREACTIVE) 08/17/18 09:25 08/19/18 16:30 Labs reviewed Assessment: 08/19/18 16:30 AOX3 no distress full rom ambulating in the unit Plan: continue detox increase fluids continue to monitor
[2018-08-19] MEDS: THIAMINE HCL 100 MG TABLET (FP) PO SCH (23:00)
[2018-08-19] MEDS: MELATONIN 5 MG TABLETS PO PRN (23:07)
[2018-08-20] MEDS: HYDROCHLOROTHIAZIDE 25 MG TABLET (FP) PO SCH (05:24)
[2018-08-20] MEDS: chlordiazePOXIDE HCL 10 MG CAPSULE PO SCH ×3 (05:24→22:23)
[2018-08-20] MEDS: amLODIPine BESYLATE 10 MG TABLET (FP) PO SCH (10:29)
[2018-08-20] MEDS: PRENATAL VITAMINS W/ FOLIC ACID TABLET (FP) PO SCH (10:29)
--- NOTE | 2018-08-20 15:03 | PN ---
S CIWA - CIWA Score Nausea/Vomitin-Mild Nausea/No Vomiting Muscle Tremors: 2 Anxiety: 1-Mildly Anxious Agitation: 2 Paroxysmal Sweats: 2 Orientation: 0-Oriented Tacttile Disturbances: 0-None Auditory Disturbances: 0-None Visual Disturbances: 0-None Headache: 0-None Present CIWA-Ar Total Score: 8 BHS Progress Note (SOAP) Subjective: Interrupted sleep, anxious Objective: 08/20/18 15:00 Last Vital Signs Temp Pulse Resp BP Pulse Ox 98.2 F 67 18 145/80 08/20/18 14:22 08/20/18 14:22 08/20/18 14:22 08/20/18 14:22 htn noted (on meds) Laboratory Tests 08/17/18 08/17/18 08/17/18 09:25 09:25 09:25 WBC 4.6 RBC 3.47 L Hgb 11.3 L Hct 33.5 L MCV 96.3 H MCH 32.4 MCHC 33.6 RDW 18.2 H Plt Count 191 D MPV 8.0 Sodium 140 Potassium 3.6 Chloride 105 Carbon Dioxide 26 Anion Gap 9 BUN 19 H Creatinine 1.0 Creat Clearance w eGFR 74.99 Random Glucose 92 Calcium 8.8 Total Bilirubin 0.4 AST 37 ALT 30 Alkaline Phosphatase 116 Total Protein 7.4 Albumin 3.9 Urine Color Urine Appearance Urine pH Ur Specific [place] Urine Protein Urine Glucose (UA) Urine Ketones Urine Blood Urine Nitrite Urine Bilirubin Urine Urobilinogen Ur Leukocyte Esterase Urine WBC (Auto) Urine RBC (Auto) Urine Casts (Auto) U Epithel Cells (Auto) Urine Bacteria (Auto) RPR Titer Nonreactive 08/17/18 12:29 WBC RBC Hgb Hct MCV MCH MCHC RDW Plt Count MPV Sodium Potassium Chloride Carbon Dioxide Anion Gap BUN Creatinine Creat Clearance w eGFR Random Glucose Calcium Total Bilirubin AST ALT Alkaline Phosphatase Total Protein Albumin Urine Color Dk yellow Urine Appearance Clear Urine pH 5.0 D Ur Specific [place] 1.028 Urine Protein 1+ H Urine Glucose (UA) Negative Urine Ketones Trace H Urine Blood Negative Urine Nitrite Negative Urine Bilirubin Negative Urine Urobilinogen 1.0 Ur Leukocyte Esterase Negative Urine WBC (Auto) 1 Urine RBC (Auto) 2 Urine Casts (Auto) 12 U Epithel Cells (Auto) 0.8 Urine Bacteria (Auto) 4.9 RPR Titer Labs reviewed: abnormal UA, mild anemia (follow up with PCP for monitoring) Assessment: 08/20/18 15:02 Withdrawal symptoms Noted with abnormal UA Plan: Continue detox Abnormal UA: encouraged PO water hydration, repeat UA
[2018-08-20] MEDS: THIAMINE HCL 100 MG TABLET (FP) PO SCH (22:23)
[2018-08-20] MEDS: MELATONIN 5 MG TABLETS PO PRN (22:23)
[2018-08-21] MEDS: HYDROCHLOROTHIAZIDE 25 MG TABLET (FP) PO SCH (05:47)
[2018-08-21 06:18] VITALS: BP 131/80; PULSE 64; TEMP 97.7
[2018-08-21] MEDS: amLODIPine BESYLATE 10 MG TABLET (FP) PO SCH (09:34)
[2018-08-21] MEDS: PRENATAL VITAMINS W/ FOLIC ACID TABLET (FP) PO SCH (09:34)
--- NOTE | 2018-08-21 20:42 | PN ---
S CIWA - CIWA Score Nausea/Vomitin-No Nausea/No Vomiting Muscle Tremors: None Anxiety: 2 Agitation: 1-Slight > Activity Paroxysmal Sweats: No Perspiration Orientation: 0-Oriented Tacttile Disturbances: 0-None Auditory Disturbances: 0-None Visual Disturbances: 1-Very Mild Sensitivity Headache: 0-None Present CIWA-Ar Total Score: 4 BHS Progress Note (SOAP) Subjective: Anxious (Mild). Objective: PATIENT A & O X 3, OBSERVED AMBULATING ON UNIT UNASSISTED. IN NO ACUTE DISTRESS. Vital Signs Temperature 97.7 F 08/21/18 06:00 Pulse Rate 64 08/21/18 06:00 Respiratory Rate 18 08/21/18 06:00 Blood Pressure 131/80 08/21/18 06:00 O2 Sat by Pulse Oximetry (%) Laboratory Tests 08/17/18 08/17/18 08/17/18 09:25 09:25 09:25 WBC 4.6 RBC 3.47 L Hgb 11.3 L Hct 33.5 L MCV 96.3 H MCH 32.4 MCHC 33.6 RDW 18.2 H Plt Count 191 D MPV 8.0 Sodium 140 Potassium 3.6 Chloride 105 Carbon Dioxide 26 Anion Gap 9 BUN 19 H Creatinine 1.0 Creat Clearance w eGFR 74.99 Random Glucose 92 Calcium 8.8 Total Bilirubin 0.4 AST 37 ALT 30 Alkaline Phosphatase 116 Total Protein 7.4 Albumin 3.9 Urine Color Urine Appearance Urine pH Ur Specific [place] Urine Protein Urine Glucose (UA) Urine Ketones Urine Blood Urine Nitrite Urine Bilirubin Urine Urobilinogen Ur Leukocyte Esterase Urine WBC (Auto) Urine RBC (Auto) Urine Casts (Auto) U Epithel Cells (Auto) Urine Bacteria (Auto) RPR Titer Nonreactive 08/17/18 12:29 WBC RBC Hgb Hct MCV MCH MCHC RDW Plt Count MPV Sodium Potassium Chloride Carbon Dioxide Anion Gap BUN Creatinine Creat Clearance w eGFR Random Glucose Calcium Total Bilirubin AST ALT Alkaline Phosphatase Total Protein Albumin Urine Color Dk yellow Urine Appearance Clear Urine pH 5.0 D Ur Specific [place] 1.028 Urine Protein 1+ H Urine Glucose (UA) Negative Urine Ketones Trace H Urine Blood Negative Urine Nitrite Negative Urine Bilirubin Negative Urine Urobilinogen 1.0 Ur Leukocyte Esterase Negative Urine WBC (Auto) 1 Urine RBC (Auto) 2 Urine Casts (Auto) 12 U Epithel Cells (Auto) 0.8 Urine Bacteria (Auto) 4.9 RPR Titer LABS NOTED. 08/21/18 20:40 Assessment: 08/21/18 20:41 COMPLETION OF DETOX REGIMEN. Plan: PATIENT SCHEDULED FOR DISCHARGE FROM DETOX UNIT TODAY. PATIENT WILL RETURN TO [facility] FOR AFTERCARE.
--- NOTE | 2018-08-21 20:50 | DS ---
[facility] Detox Discharge Summary Admission Date: 08/17/18 Discharge Date: 08/21/18 - History Present History: Alcohol Dependence Additional Comments: PATIENT WISHED TO ATTEND [facility] ([place], [place]) FOR AFTERCARE. HOWEVER, NO BEDS ARE AVAILABLE FOR ADMISSION AT [facility] AT THIS TIME. PATIENT WILL RETURN TO OUTPATIENT SUPPORT GROUP AT THE [facility] AND POSSIBLY RETURN TO APPLY TO [facility] AT A LATER DATE. PATIENT ADVISED TO FOLLOW-UP WITH [facility] INSPECTOR AT [facility] WHEN POSSIBLE AFTER DISCHARGE FROM DETOX UNIT FOR GENERAL MEDICAL ASSESSMENT AND FOR HISTORY OF HYPERTENSION AND FOR ANEMIA NOTED ON LABORATORY ASSESSMENT WHILE ADMITTED FOR DETOX. PATIENT ALSO ADVISED TO CONSIDER LOCAL [facility] OUTPATIENT SUPPORT GROUPS FOR AFTERCARE. PATIENT VERBALIZED UNDERSTANDING OF ALL RECOMMENDATIONS PRESENTED TO HIM AT TIME OF DISCHARGE FROM DETOX UNIT. COPIES OF RESULTS OF ALL LABS DRAWN WHILE ADMITTED FOR DETOX GIVEN TO PATIENT AT TIME OF DISCHARGE FROM DETOX UNIT. PATIENT DECLINED OFFER OF MEDICATION PRESCRIPTION FOR HOME MEDICATION AT TIME OF DISCHARGE FROM DETOX, NOTING THAT HE CURRENTLY HAS ADEQUATE SUPPLIES OF ALL PRESCRIBED HOME MEDICATIONS WITH THE PROPERTY THAT HE BROUGHT WITH HIM AT TIME OF ADMISSION TO DETOX UNIT. PATIENT SWAS DISCHARGED FROM DETOX UNIT IN STABLE MEDICAL CONDITION. Pertinent Past History: HTN, Nicotine Dependence, G.E.R.D., Bipolar Disorder, History Of Appendectomy, Insomnia, History Of Syncope, Tinea. - Physical Exam Results Vital Signs: Vital Signs Temperature 97.7 F 08/21/18 06:00 Pulse Rate 64 08/21/18 06:00 Respiratory Rate 18 08/21/18 06:00 Blood Pressure 131/80 08/21/18 06:00 O2 Sat by Pulse Oximetry (%) Pertinent Admission Physical Exam Findings: WITHDRAWAL SYMPTOMS. Laboratory Tests 08/17/18 08/17/18 08/17/18 09:25 09:25 09:25 WBC 4.6 RBC 3.47 L Hgb 11.3 L Hct 33.5 L MCV 96.3 H MCH 32.4 MCHC 33.6 RDW 18.2 H Plt Count 191 D MPV 8.0 Sodium 140 Potassium 3.6 Chloride 105 Carbon Dioxide 26 Anion Gap 9 BUN 19 H Creatinine 1.0 Creat Clearance w eGFR 74.99 Random Glucose 92 Calcium 8.8 Total Bilirubin 0.4 AST 37 ALT 30 Alkaline Phosphatase 116 Total Protein 7.4 Albumin 3.9 Urine Color Urine Appearance Urine pH Ur Specific [place] Urine Protein Urine Glucose (UA) Urine Ketones Urine Blood Urine Nitrite Urine Bilirubin Urine Urobilinogen Ur Leukocyte Esterase Urine WBC (Auto) Urine RBC (Auto) Urine Casts (Auto) U Epithel Cells (Auto) Urine Bacteria (Auto) RPR Titer Nonreactive 08/17/18 12:29 WBC RBC Hgb Hct MCV MCH MCHC RDW Plt Count MPV Sodium Potassium Chloride Carbon Dioxide Anion Gap BUN Creatinine Creat Clearance w eGFR Random Glucose Calcium Total Bilirubin AST ALT Alkaline Phosphatase Total Protein Albumin Urine Color Dk yellow Urine Appearance Clear Urine pH 5.0 D Ur Specific [place] 1.028 Urine Protein 1+ H Urine Glucose (UA) Negative Urine Ketones Trace H Urine Blood Negative Urine Nitrite Negative Urine Bilirubin Negative Urine Urobilinogen 1.0 Ur Leukocyte Esterase Negative Urine WBC (Auto) 1 Urine RBC (Auto) 2 Urine Casts (Auto) 12 U Epithel Cells (Auto) 0.8 Urine Bacteria (Auto) 4.9 RPR Titer LABS NOTED. - Treatment Hospital Course: Detox Protocol Followed, Detoxed Safely, Responded well, Discharged Condition Good Patient has Accepted a Rehab Referral to: PT. WILL RETURN TO [place] [facility] ([place], [place]). - Medication Discharge Medications: Ambulatory Orders Amlodipine Besylate [Norvasc -] 10 mg PO DAILY #14 tablet 07/07/18 Hydrochlorothiazide [Hctz -] 25 mg PO DAILY@0600 #14 tablet 07/07/18 - Diagnosis (1) History of appendectomy Status: Acute (2) Insomnia Status: Acute (3) Syncope Status: Acute (4) Tinea Status: Acute (5) Alcohol dependence with uncomplicated withdrawal Status: Chronic (6) Bipolar disorder Status: Chronic Qualifiers: Most recent bipolar episode type: most recent episode unspecified type (7) HTN (hypertension) Status: Chronic Qualifiers: Hypertension type: essential hypertension Qualified Code(s): I10 - Essential (primary) hypertension (8) Nicotine dependence Status: Chronic Qualifiers: Nicotine product type: cigarettes Substance use status: uncomplicated Qualified Code(s): F17.210 - Nicotine dependence, cigarettes, uncomplicated - AMA Did Patient Leave Against Medical Advice: No
== END 2018-08-21 09:53 | disposition home or self-care (01) | DRG 897 ==
LOC: YASAS 08:14 → Y6N 09:44
PROVIDERS: ADMIT Surgery; ATTEND Surgery
PROC: HZ2ZZZZ Detoxification Services for Substance Abuse Treatment (ICD-10-PCS; principal; 2018-08-17)
DX: F10.230 Alcohol dependence with withdrawal, uncomplicated (principal); F17.210 Nicotine dependence, cigarettes, uncomplicated; F31.9 Bipolar disorder, unspecified; I10 Essential (primary) hypertension; K21.9 Gastro-esophageal reflux disease without esophagitis; G47.00 Insomnia, unspecified; B35.1 Tinea unguium; B35.9 Dermatophytosis, unspecified; Z90.49 Acquired absence of other specified parts of digestive tract; Z86.79 Personal history of other diseases of the circulatory system; R55 Syncope and collapse
CPT/HCPCS: 36415; 80053; 81003; 85027; 86593